=== PATIENT | female | born 1950 | race Hispanic/Latino ===

== ENCOUNTER 2020-01-07 19:41 | Emergency (ER) | payer MEDICARE ==
[~2020-01-07] VITALS: Ht 157.5 cm; Wt 88.5 kg
[2020-01-07] MEDS ORDERED: MORPHINE SULFATE INJ 4 MG/ML INJ 1ML IV STA (20:34)
[2020-01-07] MEDS ORDERED: ONDANSETRON HCL INJ 2MG/ML 2ML 2 MG/ML VIAL IV STA (20:34)
[2020-01-07] MEDS ORDERED: PANTOPRAZOLE 40 MG 10ML VIAL IV STA (20:34)
--- NOTE | 2020-01-07 20:44 | Emergency Department Note ---
History of Present Illnes History of Present Illness Chief Complaint: Abdominal Complaints History of Present Illness This is a 69 year old female PRESENTS TO THE ED WITH NAUSEA VOMITING AND DIARRHEA SINCE 11 AM, WENT TO AN URGENT CARE AND CAME HERE FOR SECOND OPINION. PATIENT STATES HER PAIN IS EPIGASTRIC AND IS WORSENING. . Historian: Patient, Family Member Arrival Mode: Car Assistant Spa Manager Required: No Onset (how long ago): hour(s) (9) Location: upper abd Quality: pain Radiation: Reports non-radiation Severity: severe Duration (how long): hour(s) (9) Timing of current episode: constant Progression: worsening Chronicity: new Context: Denies recent illness, Denies recent surgery, Denies trauma/injury Relieving factors: none Exacerbating factors: none Associated symptoms: Reports nausea/vomiting, Reports other Treatments prior to arrival: none Past Medical/Family History Physician Review I have reviewed the patient's past medical and family history. Any updates have been documented here. Past Medical History Recent Fever: Yes Clinical Suspicion of Infectio: Yes New/Unexplained Change in Ment: No Past Medical History: Hypertension, Hypothyroidism, GERD Other Medical History: ? OSTEOPROSIS CHRONIC BACK PAIN Past Surgical History: Cholecysctectomy Social History Smoking Cessation: Never Smoker Alcohol Use: None Any Illegal Drug Use: No Family History Family history of heart diseas: No Review of Systems Review of Systems Constitutional: Reports no symptoms EENTM: Reports no symptoms Cardiovascular: Reports no symptoms Respiratory: Reports no symptoms Gastrointestinal: Reports as per HPI Genitourinary: Reports no symptoms Musculoskeletal: Reports no symptoms Integumentary: Reports no symptoms Neurological: Reports no symptoms Psychological: Reports no symptoms Endocrine: Reports no symptoms Hematological/Lymphatic: Reports no symptoms Review of other systems: All other systems negative Physical Exam Related Data Allergies: Uncoded Allergies: CONTRAST (Allergy, Severe, HIVES, 01/07/20) Triage Vital Signs Vital Signs Date Time Temp Pulse Resp B/P (MAP) Pulse Ox O2 Delivery O2 Flow Rate FiO2 01/07/20 20:24 99.7 94 20 149/79 99 Room Air Vital signs reviewed: Yes Physical Exam CONSTITUTIONAL Constitutional: Present well-developed, Present well-nourished, Present distressed (mild) HENT HENT: Present normocephalic, Present atraumatic, Present oropharynx clear/moist, Present nose normal HENT L/R: Present left ext ear normal, Present right ext ear normal EYES Eyes: Reports PERRL, Reports conjunctivae normal NECK Neck: Present ROM normal PULMONARY Pulmonary: Present effort normal, Present breath sounds normal CARDIOVASCULAR Cardiovascular: Present regular rhythm, Present heart sounds normal, Present capillary refill normal, Present normal rate GASTROINTESTINAL Abdominal: Present soft, Present bowel sounds normal, Present tender (epigastric, luq, left abd) GENITOURINARY Genitourinary: Present exam deferred SKIN Skin: Present warm, Present dry MUSCULOSKELETAL Musculoskeletal: Present ROM normal NEUROLOGICAL Neurological: Present alert, Present oriented x 3, Present no gross motor or sensory deficits PSYCHOLOGICAL Psychological: Present mood/affect normal, Present judgement normal Results Laboratory Laboratory Laboratory Tests Test 01/07/20 23:22 01/07/20 20:38 White Blood Count 16.35 x10e3/uL (4.8-10.8) Red Blood Count 5.08 x10e6/uL (3.6-5.1) Hemoglobin 15.2 g/dL (12.0-16.0) Hematocrit 45.6 % (34.2-44.1) Mean Corpuscular Volume 89.8 fL (81-99) Mean Corpuscular Hemoglobin 29.9 pg (28-32) Mean Corpuscular Hemoglobin Concent 33.3 g/dL (31-35) Red Cell Distribution Width 12.9 % (11.7-14.4) Platelet Count 345 x10e3/uL (140-360) Neutrophils (%) (Auto) 75.4 % (38.7-80.0) Lymphocytes (%) (Auto) 22.2 % (18.0-39.1) Monocytes (%) (Auto) 1.4 % (4.4-11.3) Eosinophils (%) (Auto) 0.0 % (0.0-6.0) Basophils (%) (Auto) 0.2 % (0.0-1.0) Neutrophils # (Auto) 12.3 (2.1-6.9) Lymphocytes # (Auto) 3.6 (1.0-3.2) Monocytes # (Auto) 0.2 (0.2-0.8) Eosinophils # (Auto) 0.0 (0.0-0.4) Basophils # (Auto) 0.0 (0.0-0.1) Absolute Immature Granulocyte (auto 0.13 x10e3/uL (0-0.1) Sodium Level 139 mmol/L (136-145) Potassium Level 3.9 mmol/L (3.5-5.1) Chloride Level 99 mmol/L (98-107) Carbon Dioxide Level 27 mmol/L (22-29) Anion Gap 16.9 mmol/L (8-16) Blood Urea Nitrogen 12 mg/dL (7-26) Creatinine 0.82 mg/dL (0.57-1.11) Estimat Glomerular Filtration Rate > 60 ML/MIN (60-) BUN/Creatinine Ratio 15 (6-25) Glucose Level 157 mg/dL (74-118) Calcium Level 9.3 mg/dL (8.4-10.2) Total Bilirubin 0.4 mg/dL (0.2-1.2) Aspartate Amino Transf (AST/SGOT) 15 IU/L (5-34) Alanine Aminotransferase (ALT/SGPT) 15 IU/L (0-55) Alkaline Phosphatase 73 IU/L (40-150) Creatine Kinase 49 IU/L (29-168) Creatine Kinase MB 1.30 ng/mL (0-5.0) Troponin I < 0.001 ng/mL (0-0.300) Total Protein 7.3 g/dL (6.5-8.1) Albumin 4.0 g/dL (3.5-5.0) Globulin 3.3 g/dL (2.3-3.5) Albumin/Globulin Ratio 1.2 (0.8-2.0) Amylase Level 50 U/L (25-125) Lipase 7 U/L (8-78) Lab results reviewed: Yes Imaging Imaging results reviewed: Yes Impressions Procedure: [id number] CT/CT ABDOMEN/PELVIS WO Exam Date: 01/07/20 Exam Time: 2149 REPORT STATUS: Signed EXAM: CT Abdomen and Pelvis WITHOUT contrast INDICATION: ^abd pain ^[id number] ^2149 ^Y COMPARISON: None. TECHNIQUE: Abdomen and pelvis were scanned utilizing a multidetector helical scanner from the lung base to the pubic symphysis without administration of IV contrast. Absence of intravenous contrast decreases sensitivity for detection of focal lesions and vascular pathology. Coronal and sagittal reformations were obtained. Routine protocol was performed. IV CONTRAST: None ORAL CONTRAST: None COMPLICATIONS: None RADIATION DOSE: Total DLP: 688.08 mGy*cm Estimated effective dose: (DLP x 0.015 x size factor) mSv CTDIvol has been reviewed. It is below the limits set by the Radiation Protocol Committee (RPC). FINDINGS: LINES and TUBES: None. LOWER THORAX: Bibasilar linear atelectasis/running. HEPATOBILIARY: Diffuse hepatic steatosis. 2.2 cm exophytic cyst, extending from inferior right hepatic lobe (series 2, image 34). No biliary ductal dilation. GALLBLADDER: Surgically absent. SPLEEN: No splenomegaly. PANCREAS: No focal masses or ductal dilatation. ADRENALS: No adrenal nodules KIDNEYS/URETERS: No hydronephrosis. Limited for evaluation of renal parenchyma without intravenous contrast. No stones. GI TRACT: No abnormal distention, wall thickening, or evidence of bowel obstruction. There are diverticula within the colon without evidence of diverticulitis. Appendix is normal. PELVIC ORGANS/BLADDER: Unremarkable. LYMPH NODES: No lymphadenopathy. VESSELS: Unremarkable. PERITONEUM / RETROPERITONEUM: No free air or fluid. BONES: Exaggerated lordosis of the lumbar spine. Degenerative changes of lower thoracic spine. SOFT TISSUES: Unremarkable. IMPRESSION: 1. No definite evidence of acute inflammatory process in the abdomen/pelvis, considering limitations of unenhanced study. 2. Hepatic steatosis. 3. Colonic diverticulosis without evidence of diverticulitis. Signed by: Dr. Massimo Leggett MD on 01/07/2020 10:42 PM Dictated By: MASSIMO LEGGETT MD 41 Transcribed By: DAWOOD on 01/07/202241 COPY TO: SRIRAM SOL MD~ Procedures 12 Lead ECG Interpretation ECG Interpretation : ECG: ECG 1 Assistant Spa Manager: Interpreted by ED physician Date: Jan 07, 2020 Time: 20:59 Rhythm: sinus rhythm Rate: normal BPM: 86 QRS axis: normal ST segments normal: No (NON SPECIFIC CHANGES) T waves normal: Yes Other findings: no other findings Clinical Impression: non-specific ECG Assessment & Plan Medical Decision Making MDM pt with abd pain with n/v cbc, cmp, ekg, cardiac enzymes, amylase, lipase, ua, ct abd/pelvis ordered to eval for pancreatitis,myocardial infarction, colitis, diverticulitis,sbo, perforated bowel, uti, electrolyte abnormality morphine 4 mg iv ordered zofran 4 mg iv ordered protonix 40 mg iv ordered ns 1 liter iv bolus ordered dr misa davis saw pt in er, states if ct negative d/c home with cipro and follow up in office Reassessment Reassessment time: 00:24 Reassessment pt is pain free at this time Assessment & Plan Final Impression: (1) Gastritis (2) Abdominal pain Depart Disposition: HOME, SELF-CARE Last Vital Signs Date Time Temp Pulse Resp B/P (MAP) Pulse Ox O2 Delivery O2 Flow Rate FiO2 01/07/20 20:24 99.7 94 20 149/79 99 Room Air Medications in the ED Morphine Sulfate 4 mg NOW STAT IV ; Start 01/07/20 at 20:34; Stop 01/07/20 at 20:38; Status DC Ondansetron HCl 4 mg NOW STAT IV ; Start 01/07/20 at 20:34; Stop 01/07/20 at 20:39; Status DC Sodium Chloride 1,000 ml @ 100 mls/hr Q10H IV ; Start 01/07/20 at 20:45; Stop 02/06/20 at 20:44 Pantoprazole Sodium 40 mg NOW STAT IV ; Start 01/07/20 at 20:34; Stop 01/07/20 at 20:39; Status DC SRIRAM SOL MD Jan 07, 2020 20:44
[2020-01-07] MEDS ORDERED: SODIUM CHLORIDE 0.9% 1000ML 1,000 ML IV SCH (20:45)
[2020-01-07 20:56] LABS: BASOPHILS % 0.2 % (0.0-1.0); HEMATOCRIT 45.6 % (34.2-44.1); HEMOGLOBIN 15.2 g/dL (12.0-16.0); LYMPHOCYTES # (AUTO) 3.6 (1.0-3.2); LYMPHOCYTES % 22.2 % (18.0-39.1); MEAN CORPUSCULAR HEMOGLOBIN 29.9 pg (28-32); MEAN CORPUSCULAR HGB CONC 33.3 g/dL (31-35); MEAN CORPUSCULAR VOLUME 89.8 fL (81-99); MONOCYTES # (AUTO) 0.2 (0.2-0.8); MONOCYTES % 1.4 % (4.4-11.3); NEUTROPHILS # (AUTO) 12.3 (2.1-6.9); NEUTROPHILS % 75.4 % (38.7-80.0); PLATELET COUNT 345 x10e3/uL (140-360); RED BLOOD COUNT 5.08 x10e6/uL (3.6-5.1); RED CELL DISTRIBUTION WIDTH 12.9 % (11.7-14.4)
[2020-01-07] MEDS ORDERED: HYDROMORPHONE 1MG/1ML INJ IV STA (21:09)
[2020-01-07 21:17] LABS: AMYLASE 50 U/L (25-125); LIPASE 7 U/L (8-78)
[2020-01-07 21:19] LABS: ALANINE AMINOTRANSFERASE 15 IU/L (0-55); ALBUMIN/GLOBULIN RATIO 1.2 (0.8-2.0); ALKALINE PHOSPHATASE 73 IU/L (40-150); ANION GAP 16.9 mmol/L (8-16); BLOOD UREA NITROGEN 12 mg/dL (7-26); BUN/CREATININE RATIO 15 (6-25); CALCIUM 9.3 mg/dL (8.4-10.2); CARBON DIOXIDE 27 mmol/L (22-29); CHLORIDE 99 mmol/L (98-107); CREATINE KINASE 49 IU/L (29-168); CREATININE, SERUM 0.82 mg/dL (0.57-1.11); EST GLOMERULAR FILTRATION RATE > 60 ML/MIN (60-); GLUCOSE 157 mg/dL (74-118); POTASSIUM 3.9 mmol/L (3.5-5.1); SODIUM 139 mmol/L (136-145)
[2020-01-07] MEDS ORDERED: HYDROMORPHONE 1MG/1ML INJ ONE (21:19)
--- OUTSIDE RECORDS SUMMARY | 2020-01-07 21:22 | XMS REPORT | Continuity of Care Document ---
Author Author [facility] Address [address] [place] [address] Phone Unavailable Care Team Providers Care Pharmacology Teacher Name Role Phone Unavailable Unavailable Payers Payer Name Policy Type Policy Number Effective Date Expiration Date S ource Problems This patient has no known problems. Allergies, Adverse Reactions, Alerts Allergy Name Allergy Type Status Severity Reaction(s) Onset Date Inacti ve Date Treating Clinician Comments Source Iodinated Contrast- Oral and IV Dye DA Active U 2013-10-22 00:00:00 [facility] Medications This patient has no known medications. Procedures This patient has no known procedures. Results This patient has no known results.
--- NOTE | 2020-01-07 22:46 | Diagnostic Imaging Report ---
EXAM: CT Abdomen and Pelvis WITHOUT contrast INDICATION: ^abd pain ^[id number] ^2150 ^Y COMPARISON: None. TECHNIQUE: Abdomen and pelvis were scanned utilizing a multidetector helical scanner from the lung base to the pubic symphysis without administration of IV contrast. Absence of intravenous contrast decreases sensitivity for detection of focal lesions and vascular pathology. Coronal and sagittal reformations were obtained. Routine protocol was performed. IV CONTRAST: None ORAL CONTRAST: None COMPLICATIONS: None RADIATION DOSE: Total DLP: 688.08 mGy*cm Estimated effective dose: (DLP x 0.015 x size factor) mSv CTDIvol has been reviewed. It is below the limits set by the Radiation Protocol Committee (RPC). FINDINGS: LINES and TUBES: None. LOWER THORAX: Bibasilar linear atelectasis/running. HEPATOBILIARY: Diffuse hepatic steatosis. 2.2 cm exophytic cyst, extending from inferior right hepatic lobe (series 2, image 34). No biliary ductal dilation. GALLBLADDER: Surgically absent. SPLEEN: No splenomegaly. PANCREAS: No focal masses or ductal dilatation. ADRENALS: No adrenal nodules KIDNEYS/URETERS: No hydronephrosis. Limited for evaluation of renal parenchyma without intravenous contrast. No stones. GI TRACT: No abnormal distention, wall thickening, or evidence of bowel obstruction. There are diverticula within the colon without evidence of diverticulitis. Appendix is normal. PELVIC ORGANS/BLADDER: Unremarkable. LYMPH NODES: No lymphadenopathy. VESSELS: Unremarkable. PERITONEUM / RETROPERITONEUM: No free air or fluid. BONES: Exaggerated lordosis of the lumbar spine. Degenerative changes of lower thoracic spine. SOFT TISSUES: Unremarkable. IMPRESSION: 1. No definite evidence of acute inflammatory process in the abdomen/pelvis, considering limitations of unenhanced study. 2. Hepatic steatosis. 3. Colonic diverticulosis without evidence of diverticulitis. Signed by: Dr. Massimo Leggett MD on 01/07/2020 10:42 PM
[2020-01-08 00:40] LABS: CLARITY,URINE CLOUDY (CLEAR); COLOR,URINE YELLOW (YELLOW)
[2020-01-08 00:41] LABS: BILIRUBIN,URINE NEGATIVE (NEGATIVE); KETONES,URINE 1+ (NEGATIVE); LEUKOCYTE ESTERASE ,URINE NEGATIVE (NEGATIVE); NITRITE,URINE NEGATIVE (NEGATIVE); PROTEIN,URINE DIPSTICK TRACE (NEGATIVE); URINE UROBILINOGEN 0.2 mg/dL (0.2 - 1)
[2020-01-08 00:42] LABS: BACTERIA,URINE MANY /HPF; EPITHELIAL CELLS,URINE MANY /LPF; WBC,URINE (MAN) >50 /HPF (0-5)
[2020-01-08 00:52] VITALS: BP 128/70
== END 2020-01-08 01:03 | disposition home or self-care (01) ==
LOC: ER 21:19
DX: R10.13 Epigastric pain (principal); R11.2 Nausea with vomiting, unspecified; K29.70 Gastritis, unspecified, without bleeding; I10 Essential (primary) hypertension; E03.9 Hypothyroidism, unspecified; K21.9 Gastro-esophageal reflux disease without esophagitis; M54.9 Dorsalgia, unspecified; G89.29 Other chronic pain
CPT/HCPCS: 36415; 74176; 80053; 81001; 82150; 82550; 82553; 83690; 84484; 85025; 87086; 99284; C9113; J1170; J2270; J2405; J7030; 93005

== ENCOUNTER 2020-01-09 13:21 | Inpatient (IN) | payer MEDICARE ==
[~2020-01-09] VITALS: Ht 157.5 cm; Wt 88.5 kg
[2020-01-09] MEDS ORDERED: ONDANSETRON HCL INJ 2MG/ML 2ML 2 MG/ML VIAL IV STA (13:40)
[2020-01-09] MEDS ORDERED: MORPHINE SULFATE INJ 4 MG/ML INJ 1ML IV ONE (13:45)
[2020-01-09] MEDS ORDERED: METHYLPREDNISOLONE SOD SUCC 125 MG/2ML VIAL IV ONE (13:45)
[2020-01-09] MEDS ORDERED: DIPHENHYDRAMINE HCL INJ 50 MG/ML VIAL IV ONE ×2 (13:45→15:15)
[2020-01-09] MEDS ORDERED: ONDANSETRON HCL INJ 2MG/ML 2ML 2 MG/ML VIAL IV PRN (14:30)
[2020-01-09] MEDS ORDERED: MORPHINE SULFATE INJ 2 MG/ML SYR IV PRN (14:30)
[2020-01-09] MEDS ORDERED: HYDROMORPHONE 1MG/1ML INJ IV PRN ×2 (14:30→19:15)
[2020-01-09 14:59] LABS: BASOPHILS % 0.3 % (0.0-1.0); EOSINOPHILS % 0.2 % (0.0-6.0); HEMATOCRIT 43.7 % (34.2-44.1); HEMOGLOBIN 14.6 g/dL (12.0-16.0); LYMPHOCYTES # (AUTO) 3.7 (1.0-3.2); MEAN CORPUSCULAR HEMOGLOBIN 29.7 pg (28-32); MEAN CORPUSCULAR HGB CONC 33.4 g/dL (31-35); MEAN CORPUSCULAR VOLUME 88.8 fL (81-99); MONOCYTES # (AUTO) 0.6 (0.2-0.8); MONOCYTES % 4.2 % (4.4-11.3); NEUTROPHILS # (AUTO) 9.7 (2.1-6.9); NEUTROPHILS % 68.7 % (38.7-80.0); PLATELET COUNT 344 x10e3/uL (140-360); RED BLOOD COUNT 4.92 x10e6/uL (3.6-5.1); RED CELL DISTRIBUTION WIDTH 13.2 % (11.7-14.4)
[2020-01-09 15:19] LABS: ALBUMIN/GLOBULIN RATIO 1.3 (0.8-2.0); ANION GAP 15.3 mmol/L (8-16); CREATININE, SERUM 1.03 mg/dL (0.57-1.11); POTASSIUM 3.3 mmol/L (3.5-5.1)
[2020-01-09 15:24] LABS: CLARITY,URINE SL CLOUDY (CLEAR); COLOR,URINE YELLOW (YELLOW); LEUKOCYTE ESTERASE ,URINE NEGATIVE (NEGATIVE); NITRITE,URINE NEGATIVE (NEGATIVE); PROTEIN,URINE DIPSTICK NEGATIVE (NEGATIVE)
[2020-01-09 15:25] LABS: KETONES,URINE TRACE (NEGATIVE); URINE UROBILINOGEN 0.2 mg/dL (0.2 - 1)
[2020-01-09] MEDS ORDERED: MORPHINE SULFATE INJ 4 MG/ML INJ 1ML IV PRN (15:30)
[2020-01-09 15:38] LABS: BACTERIA,URINE FEW /HPF; EPITHELIAL CELLS,URINE RARE /LPF; MUCUS,URINE FEW (RARE)
[2020-01-09] MEDS ORDERED: IOPAMIDOL 370 MG/ML 200 ML INFUS..BTL INJ ONE (15:47)
[2020-01-09] MEDS ORDERED: SODIUM CHLORIDE 0.9% 50ML 50 ML ONE (15:47)
[2020-01-09] MEDS ORDERED: FENTANYL CITRATE/PF 100MCG/2 ML INJ ONE (15:56)
[2020-01-09] MEDS ORDERED: FENTANYL CITRATE/PF 100MCG/2 ML INJ IV ONE (16:00)
[2020-01-09 20:00] VITALS: BP 136/87
[2020-01-09 21:00] VITALS: BP 136/87
[2020-01-09] MEDS: DEXTROSE 5%/LACTATED RINGERS 1,000 ML IV SCH (21:30)
[2020-01-09] MEDS: PANTOPRAZOLE 40 MG 10ML VIAL IV SCH (21:30)
[2020-01-09] MEDS: PIPER-TAZ 3.375 GM 50 ML IV SCH (21:30)
[2020-01-10] VITALS (8 sets, daily range): BP systolic 129–148; BP diastolic 62–95
[2020-01-10] MEDS: PIPER-TAZ 3.375 GM 50 ML IV SCH ×4 (02:27→19:39)
[2020-01-10] MEDS ORDERED: TIZANIDINE HCL4 M1 PO (02:46)
[2020-01-10] MEDS ORDERED: PANTOPRAZOLE SO20 MG PO (02:55)
[2020-01-10] MEDS ORDERED: ONDANSETRON2 MG/1 ML PO (02:55)
[2020-01-10] MEDS ORDERED: EVISTA60 MG PO (02:55)
[2020-01-10] MEDS ORDERED: IRBESARTAN150 MG PO (02:55)
[2020-01-10] MEDS ORDERED: HYDROCHLOROTH12.5 MG PO (02:55)
[2020-01-10] MEDS ORDERED: PROTONIX40 MG/ML (02:55)
[2020-01-10] MEDS ORDERED: LEVOTHYROXINE50 MCG PO (02:55)
[2020-01-10] MEDS: DEXTROSE 5%/LACTATED RINGERS 1,000 ML IV SCH ×2 (05:51→22:53)
[2020-01-10 06:01] LABS: BASOPHILS % 0.1 % (0.0-1.0); HEMATOCRIT 40.8 % (34.2-44.1); HEMOGLOBIN 13.7 g/dL (12.0-16.0); LYMPHOCYTES # (AUTO) 4.8 (1.0-3.2); LYMPHOCYTES % 28.3 % (18.0-39.1); MEAN CORPUSCULAR HGB CONC 33.6 g/dL (31-35); MEAN CORPUSCULAR VOLUME 89.5 fL (81-99); MONOCYTES # (AUTO) 1.1 (0.2-0.8); MONOCYTES % 6.4 % (4.4-11.3); NEUTROPHILS # (AUTO) 10.8 (2.1-6.9); NEUTROPHILS % 64.5 % (38.7-80.0); PLATELET COUNT 339 x10e3/uL (140-360); RED BLOOD COUNT 4.56 x10e6/uL (3.6-5.1); RED CELL DISTRIBUTION WIDTH 13.4 % (11.7-14.4)
[2020-01-10 06:23] LABS: ALBUMIN 3.6 g/dL (3.5-5.0); ALBUMIN/GLOBULIN RATIO 1.2 (0.8-2.0); ANION GAP 12.2 mmol/L (8-16); CALCIUM 8.8 mg/dL (8.4-10.2); CREATININE, SERUM 0.94 mg/dL (0.57-1.11); POTASSIUM 4.2 mmol/L (3.5-5.1)
[2020-01-10 09:41] LABS: CHOL/HDL RATIO 3.1 (3.0-3.6)
[2020-01-10] MEDS ORDERED: MIDAZOLAM HCL 2 MG/2 ML VIAL ONE (12:24)
[2020-01-10] MEDS ORDERED: PROPOFOL IV EMULSION 10 MG/ML 20 ML VIAL ONE (12:35)
[2020-01-10] MEDS ORDERED: LIDOCAINE HCL 2% LOCAL INJ 5 ML SDV VIAL INJ ONE (12:35)
[2020-01-10] MEDS: PANTOPRAZOLE 40 MG 10ML VIAL IV SCH (19:39)
[2020-01-11] VITALS: BP_SYST 125; BP_SYST 141; BP_DIAS 77; BP_DIAS 83
[2020-01-11] MEDS: PIPER-TAZ 3.375 GM 50 ML IV SCH ×3 (01:01→13:37)
[2020-01-11] MEDS: DEXTROSE 5%/LACTATED RINGERS 1,000 ML IV SCH (01:01)
[2020-01-11 04:00] VITALS: BP 141/83
[2020-01-11 06:38] LABS: BASOPHILS # (AUTO) 0.1 (0.0-0.1); BASOPHILS % 0.5 % (0.0-1.0); EOSINOPHILS # (AUTO) 0.1 (0.0-0.4); EOSINOPHILS % 0.8 % (0.0-6.0); HEMATOCRIT 37.5 % (34.2-44.1); HEMOGLOBIN 12.9 g/dL (12.0-16.0); LYMPHOCYTES # (AUTO) 5.1 (1.0-3.2); LYMPHOCYTES % 40.5 % (18.0-39.1); MEAN CORPUSCULAR HEMOGLOBIN 31.3 pg (28-32); MEAN CORPUSCULAR HGB CONC 34.4 g/dL (31-35); MONOCYTES # (AUTO) 1.1 (0.2-0.8); MONOCYTES % 8.6 % (4.4-11.3); NEUTROPHILS # (AUTO) 6.1 (2.1-6.9); NEUTROPHILS % 49.1 % (38.7-80.0); PLATELET COUNT 269 x10e3/uL (140-360); RED BLOOD COUNT 4.12 x10e6/uL (3.6-5.1); RED CELL DISTRIBUTION WIDTH 13.7 % (11.7-14.4)
[2020-01-11 06:53] LABS: ALANINE AMINOTRANSFERASE 12 IU/L (0-55); ALBUMIN 3.2 g/dL (3.5-5.0); ALBUMIN/GLOBULIN RATIO 1.5 (0.8-2.0); ALKALINE PHOSPHATASE 54 IU/L (40-150); ANION GAP 13.1 mmol/L (8-16); BLOOD UREA NITROGEN 11 mg/dL (7-26); BUN/CREATININE RATIO 12 (6-25); CALCIUM 8.1 mg/dL (8.4-10.2); CARBON DIOXIDE 28 mmol/L (22-29); CHLORIDE 105 mmol/L (98-107); EST GLOMERULAR FILTRATION RATE > 60 ML/MIN (60-); GLUCOSE 118 mg/dL (74-118); POTASSIUM 3.1 mmol/L (3.5-5.1); SODIUM 143 mmol/L (136-145)
[2020-01-11 08:08] VITALS: BP 170/80
[2020-01-11 08:35] VITALS: BP 170/80
[2020-01-11] MEDS ORDERED: REGADENOSON 0.4 MG/5 ML SYR IV ONE (10:12)
[2020-01-11 16:00] VITALS: BP 143/68
[2020-02-14] MEDS ORDERED: OLMESARTAN-HCT1 EAC1 PO (15:54)
== END 2020-01-11 18:18 | disposition home or self-care (01) | DRG 392 ==
LOC: ER 13:52 → ERHOLD 14:26 → MED/SURG3 19:07
PROVIDERS: ADMIT Surgery; ATTEND Surgery
PROC: 0DB58ZX Excision of Esophagus, Via Natural or Artificial Opening Endoscopic, Diagnostic (ICD-10-PCS; 2020-01-10)
PROC: 0DB78ZX Excision of Stomach, Pylorus, Via Natural or Artificial Opening Endoscopic, Diagnostic (ICD-10-PCS; principal; 2020-01-10 08:04)
DX: K29.70 Gastritis, unspecified, without bleeding (principal); A04.9 Bacterial intestinal infection, unspecified; E66.9 Obesity, unspecified; Z68.35 Body mass index [BMI] 35.0-35.9, adult; I10 Essential (primary) hypertension; M19.90 Unspecified osteoarthritis, unspecified site; G89.29 Other chronic pain; M54.9 Dorsalgia, unspecified; K31.7 Polyp of stomach and duodenum; K44.9 Diaphragmatic hernia without obstruction or gangrene; K22.9 Disease of esophagus, unspecified; Z11.59 Encounter for screening for other viral diseases
CPT/HCPCS: 36415; 43239; 74177; 78452; 80053; 80061; 81001; 82550; 82553; 83690; 84484; 85025; 88305; 88312; 93005; 93017; 93306; 96361; 99284; A9502; J1200; J2001; J2250; J2270; J2405; J2543; J2930; J3010; Q9967; U0002

== ENCOUNTER → 2020-02-20 | Day surgery (SDC) | payer MEDICARE ==
[~2020-02-20] MED LIST: EVISTA60 MG PO; HYDROCHLOROTH12.5 MG PO; IRBESARTAN150 MG PO; LEVOTHYROXINE50 MCG PO; MIDAZOLAM HCL 2 MG/2 ML VIAL ONE; OLMESARTAN-HCT1 EAC1 PO; ONDANSETRON2 MG/1 ML PO; PANTOPRAZOLE SO20 MG PO; PROPOFOL IV EMULSION 10 MG/ML 20 ML VIAL ONE; PROTONIX40 MG/ML; TIZANIDINE HCL4 M1 PO
[2020-02-20 09:36] VITALS: BP 115/58
== END | disposition home or self-care (01) ==
LOC: OR 06:20
PROVIDERS: ATTEND Surgery
DX: C16.0 Malignant neoplasm of cardia (principal); D13.1 Benign neoplasm of stomach; I10 Essential (primary) hypertension; Z91.041 Radiographic dye allergy status; Z01.812 Encounter for preprocedural laboratory examination; Z20.828 Contact with and (suspected) exposure to other viral communicable diseases
CPT/HCPCS: 43251; 88305; J2250; J2704; U0002; 43239

== ENCOUNTER 2020-04-23 06:31 | Inpatient (IN) | payer MEDICARE ==
[2020-04-19 15:42] LABS: BASOPHILS # (AUTO) 0.1 (0.0-0.1); BASOPHILS % 0.6 % (0.0-1.0); EOSINOPHILS # (AUTO) 0.1 (0.0-0.4); HEMATOCRIT 42.2 % (34.2-44.1); HEMOGLOBIN 13.9 g/dL (12.0-16.0); LYMPHOCYTES # (AUTO) 3.9 (1.0-3.2); LYMPHOCYTES % 38.2 % (18.0-39.1); MEAN CORPUSCULAR HEMOGLOBIN 29.8 pg (28-32); MEAN CORPUSCULAR HGB CONC 32.9 g/dL (31-35); MEAN CORPUSCULAR VOLUME 90.4 fL (81-99); MONOCYTES % 9.3 % (4.4-11.3); NEUTROPHILS # (AUTO) 5.2 (2.1-6.9); NEUTROPHILS % 50.5 % (38.7-80.0); PLATELET COUNT 314 x10e3/uL (140-360); RED BLOOD COUNT 4.67 x10e6/uL (3.6-5.1); RED CELL DISTRIBUTION WIDTH 13.6 % (11.7-14.4)
[2020-04-19 16:02] LABS: ALANINE AMINOTRANSFERASE 12 IU/L (0-55); ALBUMIN 3.8 g/dL (3.5-5.0); ALBUMIN/GLOBULIN RATIO 1.2 (0.8-2.0); ALKALINE PHOSPHATASE 65 IU/L (40-150); ANION GAP 14.8 mmol/L (8-16); BLOOD UREA NITROGEN 14 mg/dL (7-26); BUN/CREATININE RATIO 16 (6-25); CALCIUM 8.8 mg/dL (8.4-10.2); CARBON DIOXIDE 28 mmol/L (22-29); CHLORIDE 103 mmol/L (98-107); CREATININE, SERUM 0.85 mg/dL (0.57-1.11); EST GLOMERULAR FILTRATION RATE > 60 ML/MIN (60-); GLUCOSE 114 mg/dL (74-118); POTASSIUM 3.8 mmol/L (3.5-5.1); SODIUM 142 mmol/L (136-145)
[~2020-04-23] VITALS: Ht 157.5 cm; Wt 88.5 kg
[~2020-04-23 06:31] MED LIST changes: +AVALIDE 150-121 EACH PO; +BENTYL10 MG/1 ML PO; -MIDAZOLAM HCL 2 MG/2 ML VIAL ONE; -PROPOFOL IV EMULSION 10 MG/ML 20 ML VIAL ONE
[2020-04-23] MEDS ORDERED: MINERAL OIL STERILE 10ML VIAL ONE (09:06)
[2020-04-23] MEDS ORDERED: BUPIVACAINE 0.25% 30ML SDV ONE (09:49)
[2020-04-23] MEDS ORDERED: BUPIVACAINE LIPOSOME/PF 266 MG/20 ML IJ ONE (09:49)
[2020-04-23] MEDS ORDERED: MIDAZOLAM HCL 2 MG/2 ML VIAL ONE (12:38)
[2020-04-23] MEDS ORDERED: FENTANYL CITRATE/PF 100MCG/2 ML INJ ONE (12:38)
[2020-04-23] MEDS ORDERED: ONDANSETRON HCL INJ 2MG/ML 2ML 2 MG/ML VIAL ONE (12:58)
[2020-04-23] MEDS ORDERED: NEOSTIGMINE 1 MG/ML 10ML VIAL ONE (12:58)
[2020-04-23] MEDS ORDERED: LIDOCAINE HCL 2% LOCAL INJ 5 ML SDV VIAL INJ ONE (12:58)
[2020-04-23] MEDS ORDERED: CEFOXITIN SOD 1 GM VIAL ONE (12:58)
[2020-04-23] MEDS ORDERED: DEXAMETHASONE SOD PHOS INJ 4 MG/ML VIAL ONE (12:58)
[2020-04-23] MEDS ORDERED: ROCURONIUM BROMIDE 10 MG/ML 5ML VIAL IV ONE (12:58)
[2020-04-23] MEDS ORDERED: ATROPINE SULFATE 1 MG/ML VIAL ONE (12:58)
[2020-04-23] MEDS ORDERED: PHENYLEPHRINE HCL 1% 10 MG/ML VIAL ONE (12:58)
[2020-04-23] MEDS ORDERED: KETOROLAC TROMETHAMINE 30 MG/ML VIAL ONE (12:58)
[2020-04-23] MEDS ORDERED: SEVOFLURANE INHAL SOLN 250 ML PEN BTL ONE (12:58)
[2020-04-23] MEDS ORDERED: PROPOFOL IV EMULSION 10 MG/ML 20 ML VIAL ONE (12:58)
[2020-04-23] MEDS ORDERED: NALOXONE HCL INJ 0.4 MG/ML AMP IV PRN (13:00)
[2020-04-23] MEDS: HYDROMORPHONE 0.2MG/ML-SOD CHL 30ML PCA SYRINGE IV PRN (13:25)
[2020-04-23 15:30] VITALS: BP 146/90
[2020-04-23] MEDS: SODIUM CHLORIDE 0.9% 250ML IRRIG IR SCH ×3 (15:47→21:26)
[2020-04-23] MEDS ORDERED: ACETAMINOPHEN 1000 MG/100 ML IV PRN (16:00)
[2020-04-23] MEDS: DEXTROSE 5%/LACTATED RINGERS 1,000 ML IV SCH (16:07)
[2020-04-23] MEDS: PANTOPRAZOLE 40 MG 10ML VIAL IV SCH (16:07)
[2020-04-23] MEDS: CEFTRIAXONE SOD 1 GM 50 ML IV SCH (17:28)
[2020-04-23 20:00] VITALS: BP 115/75
[2020-04-23 21:00] VITALS: BP 115/75
[2020-04-24] VITALS (8 sets, daily range): BP systolic 115–132; BP diastolic 63–91
[2020-04-24] MEDS: SODIUM CHLORIDE 0.9% 250ML IRRIG IR SCH ×6 (01:12→22:12)
[2020-04-24] MEDS: DEXTROSE 5%/LACTATED RINGERS 1,000 ML IV SCH ×4 (02:08→22:12)
[2020-04-24] MEDS: HYDROMORPHONE 0.2MG/ML-SOD CHL 30ML PCA SYRINGE IV PRN (04:35)
[2020-04-24 09:46] LABS: BASOPHILS # (AUTO) 0.1 (0.0-0.1); BASOPHILS % 0.4 % (0.0-1.0); HEMATOCRIT 38.8 % (34.2-44.1); HEMOGLOBIN 12.7 g/dL (12.0-16.0); LYMPHOCYTES # (AUTO) 3.7 (1.0-3.2); LYMPHOCYTES % 10.7 % (18.0-39.1); MEAN CORPUSCULAR HEMOGLOBIN 29.7 pg (28-32); MEAN CORPUSCULAR HGB CONC 32.7 g/dL (31-35); MEAN CORPUSCULAR VOLUME 90.7 fL (81-99); MONOCYTES % 8.6 % (4.4-11.3); NEUTROPHILS # (AUTO) 27.6 (2.1-6.9); NEUTROPHILS % 79.3 % (38.7-80.0); PLATELET COUNT 271 x10e3/uL (140-360); RED BLOOD COUNT 4.28 x10e6/uL (3.6-5.1); RED CELL DISTRIBUTION WIDTH 13.8 % (11.7-14.4)
[2020-04-24 10:08] LABS: ANION GAP 15.2 mmol/L (8-16); CALCIUM 7.9 mg/dL (8.4-10.2); CREATININE, SERUM 1.75 mg/dL (0.57-1.11); POTASSIUM 4.2 mmol/L (3.5-5.1)
[2020-04-24 11:17] LABS: LYMPHOCYTES % (MANUAL) 6 % (19-48); MONOCYTES % (MANUAL) 7 % (3.4-9.0); NEUTROPHILS % (MANUAL) 84 % (40-74); PLATELET ESTIMATE ADEQUATE; PLATELET MORPHOLOGY COMMENT NORMAL; RBC MORPHOLOGY COMMENT NORMAL
[2020-04-24] MEDS: PANTOPRAZOLE 40 MG 10ML VIAL IV SCH (16:38)
[2020-04-24] MEDS: CEFTRIAXONE SOD 1 GM 50 ML IV SCH (16:38)
[2020-04-25] VITALS (7 sets, daily range): BP systolic 115–137; BP diastolic 59–71
[2020-04-25] MEDS: HYDROMORPHONE 0.2MG/ML-SOD CHL 30ML PCA SYRINGE IV PRN ×2 (02:15→23:55)
[2020-04-25] MEDS: SODIUM CHLORIDE 0.9% 250ML IRRIG IR SCH ×6 (02:18→21:29)
[2020-04-25] MEDS: DEXTROSE 5%/LACTATED RINGERS 1,000 ML IV SCH ×3 (07:10→16:17)
[2020-04-25 10:08] LABS: BASOPHILS % 0.1 % (0.0-1.0); EOSINOPHILS # (AUTO) 0.1 (0.0-0.4); EOSINOPHILS % 0.3 % (0.0-6.0); HEMATOCRIT 30.1 % (34.2-44.1); HEMOGLOBIN 9.9 g/dL (12.0-16.0); LYMPHOCYTES # (AUTO) 3.6 (1.0-3.2); LYMPHOCYTES % 9.6 % (18.0-39.1); MEAN CORPUSCULAR HEMOGLOBIN 30.4 pg (28-32); MEAN CORPUSCULAR HGB CONC 32.9 g/dL (31-35); MEAN CORPUSCULAR VOLUME 92.3 fL (81-99); MONOCYTES # (AUTO) 2.9 (0.2-0.8); MONOCYTES % 7.8 % (4.4-11.3); NEUTROPHILS # (AUTO) 30.1 (2.1-6.9); NEUTROPHILS % 80.1 % (38.7-80.0); PLATELET COUNT 235 x10e3/uL (140-360); RED BLOOD COUNT 3.26 x10e6/uL (3.6-5.1); RED CELL DISTRIBUTION WIDTH 14.2 % (11.7-14.4)
[2020-04-25 10:28] LABS: CREATININE, SERUM 1.07 mg/dL (0.57-1.11)
[2020-04-25] MEDS: PANTOPRAZOLE 40 MG 10ML VIAL IV SCH (16:17)
[2020-04-25] MEDS: CEFTRIAXONE SOD 1 GM 50 ML IV SCH (16:17)
[2020-04-26] VITALS (8 sets, daily range): BP systolic 125–144; BP diastolic 51–77
[2020-04-26] MEDS: SODIUM CHLORIDE 0.9% 250ML IRRIG IR SCH ×6 (00:48→22:13)
[2020-04-26] MEDS: DEXTROSE 5%/LACTATED RINGERS 1,000 ML IV SCH ×3 (00:48→08:51)
[2020-04-26 05:28] LABS: BASOPHILS # (AUTO) 0.1 (0.0-0.1); BASOPHILS % 0.2 % (0.0-1.0); EOSINOPHILS % 0.1 % (0.0-6.0); HEMATOCRIT 27.1 % (34.2-44.1); HEMOGLOBIN 8.7 g/dL (12.0-16.0); LYMPHOCYTES # (AUTO) 3.5 (1.0-3.2); LYMPHOCYTES % 12.8 % (18.0-39.1); MEAN CORPUSCULAR HEMOGLOBIN 30.1 pg (28-32); MEAN CORPUSCULAR HGB CONC 32.1 g/dL (31-35); MEAN CORPUSCULAR VOLUME 93.8 fL (81-99); MONOCYTES # (AUTO) 2.3 (0.2-0.8); MONOCYTES % 8.4 % (4.4-11.3); NEUTROPHILS # (AUTO) 20.9 (2.1-6.9); NEUTROPHILS % 77.3 % (38.7-80.0); PLATELET COUNT 239 x10e3/uL (140-360); RED BLOOD COUNT 2.89 x10e6/uL (3.6-5.1); RED CELL DISTRIBUTION WIDTH 14.2 % (11.7-14.4)
[2020-04-26 05:44] LABS: ANION GAP 8.9 mmol/L (8-16); BLOOD UREA NITROGEN 20 mg/dL (7-26); BUN/CREATININE RATIO 26 (6-25); CALCIUM 7.7 mg/dL (8.4-10.2); CARBON DIOXIDE 31 mmol/L (22-29); CHLORIDE 108 mmol/L (98-107); CREATININE, SERUM 0.76 mg/dL (0.57-1.11); EST GLOMERULAR FILTRATION RATE > 60 ML/MIN (60-); GLUCOSE 133 mg/dL (74-118); POTASSIUM 3.9 mmol/L (3.5-5.1); SODIUM 144 mmol/L (136-145)
[2020-04-26 08:17] LABS: LYMPHOCYTES % (MANUAL) 8 % (19-48); MONOCYTES % (MANUAL) 6 % (3.4-9.0); NEUTROPHILS % (MANUAL) 86 % (40-74); PLATELET ESTIMATE ADEQUATE; PLATELET MORPHOLOGY COMMENT NORMAL; RBC MORPHOLOGY COMMENT NORMAL
[2020-04-26] MEDS ORDERED: BISACODYL 10 MG SUPP PR ONE (12:45)
[2020-04-26] MEDS: PANTOPRAZOLE 40 MG 10ML VIAL IV SCH (16:00)
[2020-04-26] MEDS: CEFTRIAXONE SOD 1 GM 50 ML IV SCH (17:00)
[2020-04-27] VITALS (8 sets, daily range): BP systolic 132–153; BP diastolic 70–99
[2020-04-27] MEDS: SODIUM CHLORIDE 0.9% 250ML IRRIG IR SCH ×3 (00:32→09:00)
[2020-04-27] MEDS: DEXTROSE 5%/LACTATED RINGERS 1,000 ML IV SCH ×5 (00:32→23:23)
[2020-04-27] MEDS: HYDROMORPHONE 0.2MG/ML-SOD CHL 30ML PCA SYRINGE IV PRN (02:40)
[2020-04-27] MEDS ORDERED: BISACODYL 10 MG SUPP PR ONE ×2 (09:00→09:45)
[2020-04-27 09:48] LABS: BASOPHILS % 0.2 % (0.0-1.0); EOSINOPHILS # (AUTO) 0.1 (0.0-0.4); EOSINOPHILS % 0.7 % (0.0-6.0); HEMATOCRIT 27.9 % (34.2-44.1); HEMOGLOBIN 9.1 g/dL (12.0-16.0); LYMPHOCYTES # (AUTO) 3.2 (1.0-3.2); LYMPHOCYTES % 16.6 % (18.0-39.1); MEAN CORPUSCULAR HEMOGLOBIN 30.7 pg (28-32); MEAN CORPUSCULAR HGB CONC 32.6 g/dL (31-35); MEAN CORPUSCULAR VOLUME 94.3 fL (81-99); MONOCYTES % 10.3 % (4.4-11.3); NEUTROPHILS # (AUTO) 13.7 (2.1-6.9); NEUTROPHILS % 71.4 % (38.7-80.0); PLATELET COUNT 254 x10e3/uL (140-360); RED BLOOD COUNT 2.96 x10e6/uL (3.6-5.1)
[2020-04-27 10:26] LABS: ALANINE AMINOTRANSFERASE 157 IU/L (0-55); ALBUMIN 2.2 g/dL (3.5-5.0); ALBUMIN/GLOBULIN RATIO 0.7 (0.8-2.0); ALKALINE PHOSPHATASE 60 IU/L (40-150); ANION GAP 10.5 mmol/L (8-16); BLOOD UREA NITROGEN 16 mg/dL (7-26); BUN/CREATININE RATIO 24 (6-25); CALCIUM 7.8 mg/dL (8.4-10.2); CARBON DIOXIDE 27 mmol/L (22-29); CHLORIDE 110 mmol/L (98-107); CREATININE, SERUM 0.68 mg/dL (0.57-1.11); EST GLOMERULAR FILTRATION RATE > 60 ML/MIN (60-); GLUCOSE 124 mg/dL (74-118); POTASSIUM 3.5 mmol/L (3.5-5.1); SODIUM 144 mmol/L (136-145)
[2020-04-27] MEDS: CEFTRIAXONE SOD 1 GM 50 ML IV SCH (17:43)
[2020-04-27] MEDS: PANTOPRAZOLE 40 MG 10ML VIAL IV SCH (17:43)
[2020-04-28] VITALS (8 sets, daily range): BP systolic 126–150; BP diastolic 64–83
[2020-04-28] MEDS: DEXTROSE 5%/LACTATED RINGERS 1,000 ML IV SCH (09:29)
[2020-04-28] MEDS: PANTOPRAZOLE 40 MG 10ML VIAL IV SCH (16:36)
[2020-04-28] MEDS: CEFTRIAXONE SOD 1 GM 50 ML IV SCH (16:36)
[2020-04-28] MEDS: HYDROMORPHONE 0.2MG/ML-SOD CHL 30ML PCA SYRINGE IV PRN (17:50)
[2020-04-29] VITALS (8 sets, daily range): BP systolic 133–150; BP diastolic 70–79
[2020-04-29] MEDS: DEXTROSE 5%/LACTATED RINGERS 1,000 ML IV SCH ×2 (04:54→21:04)
[2020-04-29 10:48] LABS: BASOPHILS % 0.2 % (0.0-1.0); EOSINOPHILS # (AUTO) 0.4 (0.0-0.4); EOSINOPHILS % 2.2 % (0.0-6.0); HEMATOCRIT 26.9 % (34.2-44.1); HEMOGLOBIN 8.9 g/dL (12.0-16.0); LYMPHOCYTES # (AUTO) 3.3 (1.0-3.2); LYMPHOCYTES % 19.2 % (18.0-39.1); MEAN CORPUSCULAR HGB CONC 33.1 g/dL (31-35); MEAN CORPUSCULAR VOLUME 90.6 fL (81-99); MONOCYTES # (AUTO) 2.2 (0.2-0.8); MONOCYTES % 12.6 % (4.4-11.3); NEUTROPHILS # (AUTO) 10.9 (2.1-6.9); NEUTROPHILS % 63.8 % (38.7-80.0); PLATELET COUNT 383 x10e3/uL (140-360); RED BLOOD COUNT 2.97 x10e6/uL (3.6-5.1); RED CELL DISTRIBUTION WIDTH 13.7 % (11.7-14.4)
[2020-04-29 11:03] LABS: ALANINE AMINOTRANSFERASE 87 IU/L (0-55); ALBUMIN 2.2 g/dL (3.5-5.0); ALBUMIN/GLOBULIN RATIO 0.7 (0.8-2.0); ALKALINE PHOSPHATASE 73 IU/L (40-150); ANION GAP 10.1 mmol/L (8-16); BLOOD UREA NITROGEN 8 mg/dL (7-26); BUN/CREATININE RATIO 13 (6-25); CALCIUM 7.6 mg/dL (8.4-10.2); CARBON DIOXIDE 28 mmol/L (22-29); CHLORIDE 105 mmol/L (98-107); CREATININE, SERUM 0.62 mg/dL (0.57-1.11); EST GLOMERULAR FILTRATION RATE > 60 ML/MIN (60-); GLUCOSE 127 mg/dL (74-118); POTASSIUM 3.1 mmol/L (3.5-5.1); SODIUM 140 mmol/L (136-145)
[2020-04-29] MEDS ORDERED: HYDROCODONE/APAP 7.5MG-325MG 1 EA TAB PO PRN (11:30)
[2020-04-29] MEDS ORDERED: HYDROMORPHONE 1MG/1ML INJ IV PRN (11:30)
[2020-04-29] MEDS: CEFTRIAXONE SOD 1 GM 50 ML IV SCH (17:20)
[2020-04-29] MEDS: PANTOPRAZOLE 40 MG 10ML VIAL IV SCH (17:20)
[2020-04-29] MEDS ORDERED: ACETAMINOPHEN/CODEINE 300MG - 30MG TAB PO PRN (19:15)
[2020-04-29] MEDS: ONDANSETRON HCL INJ 2MG/ML 2ML 2 MG/ML VIAL IV PRN (21:02)
[2020-04-29] MEDS: HYDROMORPHONE 1MG/1ML INJ IV PRN (21:02)
[2020-04-30] VITALS (9 sets, daily range): BP systolic 123–150; BP diastolic 54–74
[2020-04-30] MEDS ORDERED: POTASSIUM CHLORIDE 20MEQ/100ML 200 ML IV ONE (09:00)
[2020-04-30] MEDS ORDERED: FUROSEMIDE INJ 10 MG/ML 2 ML VIAL IV ONE (09:30)
[2020-04-30] MEDS: PANTOPRAZOLE 40 MG 10ML VIAL IV SCH (16:00)
[2020-04-30] MEDS: ONDANSETRON HCL INJ 2MG/ML 2ML 2 MG/ML VIAL IV PRN (22:15)
[2020-05-01] VITALS (7 sets, daily range): BP systolic 118–133; BP diastolic 61–93
[2020-05-01] MEDS: HYDROMORPHONE 1MG/1ML INJ IV PRN ×3 (02:13→21:50)
[2020-05-01] MEDS: ONDANSETRON HCL INJ 2MG/ML 2ML 2 MG/ML VIAL IV PRN ×4 (02:13→21:30)
[2020-05-01 04:31] LABS: BASOPHILS # (AUTO) 0.1 (0.0-0.1); BASOPHILS % 0.4 % (0.0-1.0); EOSINOPHILS # (AUTO) 0.4 (0.0-0.4); EOSINOPHILS % 2.7 % (0.0-6.0); HEMOGLOBIN 8.4 g/dL (12.0-16.0); LYMPHOCYTES # (AUTO) 3.5 (1.0-3.2); LYMPHOCYTES % 21.4 % (18.0-39.1); MEAN CORPUSCULAR HEMOGLOBIN 29.3 pg (28-32); MEAN CORPUSCULAR HGB CONC 32.3 g/dL (31-35); MEAN CORPUSCULAR VOLUME 90.6 fL (81-99); MONOCYTES % 12.1 % (4.4-11.3); NEUTROPHILS # (AUTO) 9.8 (2.1-6.9); PLATELET COUNT 478 x10e3/uL (140-360); RED BLOOD COUNT 2.87 x10e6/uL (3.6-5.1); RED CELL DISTRIBUTION WIDTH 13.8 % (11.7-14.4)
[2020-05-01 04:51] LABS: ALANINE AMINOTRANSFERASE 48 IU/L (0-55); ALBUMIN 2.2 g/dL (3.5-5.0); ALBUMIN/GLOBULIN RATIO 0.8 (0.8-2.0); ALKALINE PHOSPHATASE 64 IU/L (40-150); ANION GAP 9.9 mmol/L (8-16); BLOOD UREA NITROGEN 8 mg/dL (7-26); BUN/CREATININE RATIO 12 (6-25); CALCIUM 7.4 mg/dL (8.4-10.2); CARBON DIOXIDE 29 mmol/L (22-29); CHLORIDE 104 mmol/L (98-107); CREATININE, SERUM 0.69 mg/dL (0.57-1.11); EST GLOMERULAR FILTRATION RATE > 60 ML/MIN (60-); GLUCOSE 108 mg/dL (74-118); SODIUM 140 mmol/L (136-145)
[2020-05-01 04:55] LABS: POTASSIUM 2.9 mmol/L (3.5-5.1)
[2020-05-01] MEDS ORDERED: POTASSIUM CHLORIDE 20MEQ/15ML UDC PO ONE ×2 (05:30→09:30)
[2020-05-01] MEDS ORDERED: KCL 20 MEQ PACKET/ ORAL SOLN PO ONE ×2 (06:55→09:30)
[2020-05-01] MEDS: POTASSIUM CHLORIDE 20 MEQ in DEXTROSE 5%/LACTATED RINGERS 1,000 ML IV SCH ×2 (07:11→20:13)
[2020-05-01] MEDS: PANTOPRAZOLE 40 MG 10ML VIAL IV SCH (17:50)
[2020-05-02 00:25] VITALS: BP 96/53
[2020-05-02 05:23] VITALS: BP 148/87
[2020-05-02] MEDS: HYDROMORPHONE 1MG/1ML INJ IV PRN ×2 (05:50→14:17)
[2020-05-02 06:06] LABS: BASOPHILS # (AUTO) 0.1 (0.0-0.1); BASOPHILS % 0.6 % (0.0-1.0); EOSINOPHILS # (AUTO) 0.4 (0.0-0.4); EOSINOPHILS % 2.4 % (0.0-6.0); HEMOGLOBIN 9.1 g/dL (12.0-16.0); LYMPHOCYTES % 24.2 % (18.0-39.1); MEAN CORPUSCULAR HEMOGLOBIN 29.5 pg (28-32); MEAN CORPUSCULAR HGB CONC 32.5 g/dL (31-35); MEAN CORPUSCULAR VOLUME 90.9 fL (81-99); MONOCYTES # (AUTO) 1.9 (0.2-0.8); MONOCYTES % 11.8 % (4.4-11.3); NEUTROPHILS # (AUTO) 9.2 (2.1-6.9); NEUTROPHILS % 56.5 % (38.7-80.0); PLATELET COUNT 324 x10e3/uL (140-360); RED BLOOD COUNT 3.08 x10e6/uL (3.6-5.1); RED CELL DISTRIBUTION WIDTH 14.4 % (11.7-14.4)
[2020-05-02] MEDS: POTASSIUM CHLORIDE 20 MEQ in DEXTROSE 5%/LACTATED RINGERS 1,000 ML IV SCH (06:46)
[2020-05-02 06:59] LABS: ALANINE AMINOTRANSFERASE 37 IU/L (0-55); ALBUMIN 2.2 g/dL (3.5-5.0); ALBUMIN/GLOBULIN RATIO 0.8 (0.8-2.0); ALKALINE PHOSPHATASE 64 IU/L (40-150); ANION GAP 11.5 mmol/L (8-16); BLOOD UREA NITROGEN 7 mg/dL (7-26); BUN/CREATININE RATIO 10 (6-25); CALCIUM 7.5 mg/dL (8.4-10.2); CARBON DIOXIDE 25 mmol/L (22-29); CHLORIDE 107 mmol/L (98-107); CREATININE, SERUM 0.67 mg/dL (0.57-1.11); EST GLOMERULAR FILTRATION RATE > 60 ML/MIN (60-); GLUCOSE 113 mg/dL (74-118); POTASSIUM 3.5 mmol/L (3.5-5.1); SODIUM 140 mmol/L (136-145)
[2020-05-02 08:00] VITALS: BP 143/76
[2020-05-02 08:06] VITALS: BP 143/76
[2020-05-02] MEDS ORDERED: FUROSEMIDE INJ 10 MG/ML 2 ML VIAL IV ONE (09:00)
[2020-05-02 11:43] VITALS: BP 143/60
[2020-05-02] MEDS: ONDANSETRON HCL INJ 2MG/ML 2ML 2 MG/ML VIAL IV PRN (14:16)
[2020-05-02] MEDS: PANTOPRAZOLE 40 MG 10ML VIAL IV SCH (15:57)
[2020-05-02 16:00] VITALS: BP 134/81
== END 2020-05-02 19:39 | disposition home or self-care (01) | DRG 327 ==
LOC: OR 06:31 → PACU V 13:00 → MED/SURG 15:04
PROVIDERS: ADMIT Surgery; ATTEND Surgery
PROC: 02HV33Z Insertion of Infusion Device into Superior Vena Cava, Percutaneous Approach (ICD-10-PCS; 2020-04-19)
PROC: 07TP0ZZ Resection of Spleen, Open Approach (ICD-10-PCS; 2020-04-23)
PROC: 0DQ70ZZ Repair Stomach, Pylorus, Open Approach (ICD-10-PCS; 2020-04-23)
PROC: 0DT60ZZ Resection of Stomach, Open Approach (ICD-10-PCS; principal; 2020-04-23 07:30)
DX: C16.0 Malignant neoplasm of cardia (principal); N17.9 Acute kidney failure, unspecified; D62 Acute posthemorrhagic anemia; E66.9 Obesity, unspecified; K21.9 Gastro-esophageal reflux disease without esophagitis; E03.9 Hypothyroidism, unspecified; M19.90 Unspecified osteoarthritis, unspecified site; Z68.35 Body mass index [BMI] 35.0-35.9, adult; I10 Essential (primary) hypertension; E87.6 Hypokalemia; D53.9 Nutritional anemia, unspecified; Z20.822 Contact with and (suspected) exposure to COVID-19
CPT/HCPCS: 36415; 71045; 71046; 80048; 80053; 85025; 86850; 86900; 88172; 88173; 88305; 88307; 88331; 93005; 97139; 99251; J0461; J0694; J0696; J1100; J1170; J1885; J1940; J2001; J2250; J2370; J2405; J2710; J3010; J3480; U0002

== ENCOUNTER → 2020-05-03 | Outpatient (CLI) | payer OTHER ==
[~2020-05-03] MED LIST changes: +COVID-19 VACC, MRNA(MODERNA)/PF 100 MCG/0.5 ML VIAL IM ONE
== END ==
LOC: VACCPMC 13:49
DX: Z23 Encounter for immunization (principal); Z20.822 Contact with and (suspected) exposure to COVID-19
CPT/HCPCS: 91301

== ENCOUNTER → 2020-05-27 | Outpatient (CLI) | payer OTHER ==
[~2020-05-27] MED LIST changes: +PANTOPRAZOLE SO40 MG PO; +REGLAN10 MG PO; +VANCOCIN HCL250 MG PO
== END | disposition home or self-care (01) ==
LOC: VACCPMC 09:25
DX: Z23 Encounter for immunization (principal); Z20.822 Contact with and (suspected) exposure to COVID-19
CPT/HCPCS: 91301

== ENCOUNTER → 2020-05-30 | Outpatient (CLI) | payer MEDICARE ==
[~2020-05-30] MED LIST changes: -COVID-19 VACC, MRNA(MODERNA)/PF 100 MCG/0.5 ML VIAL IM ONE; -PANTOPRAZOLE SO40 MG PO; -REGLAN10 MG PO; -VANCOCIN HCL250 MG PO
== END ==
LOC: DX 09:50
PROVIDERS: ATTEND Surgery
DX: R11.10 Vomiting, unspecified (principal)
CPT/HCPCS: 71046; 74246; U0002

== ENCOUNTER 2020-06-04 14:12 | Inpatient (IN) | payer MEDICARE ==
[~2020-06-04] VITALS: Ht 157.5 cm; Wt 88.5 kg
[2020-06-04 16:01] VITALS: BP 104/63
[2020-06-04 16:22] LABS: BASOPHILS # (AUTO) 0.1 (0.0-0.1); BASOPHILS % 0.4 % (0.0-1.0); EOSINOPHILS # (AUTO) 0.1 (0.0-0.4); EOSINOPHILS % 0.8 % (0.0-6.0); HEMATOCRIT 40.3 % (34.2-44.1); LYMPHOCYTES # (AUTO) 3.6 (1.0-3.2); LYMPHOCYTES % 28.3 % (18.0-39.1); MEAN CORPUSCULAR HEMOGLOBIN 28.3 pg (28-32); MEAN CORPUSCULAR HGB CONC 32.3 g/dL (31-35); MEAN CORPUSCULAR VOLUME 87.8 fL (81-99); MONOCYTES # (AUTO) 1.3 (0.2-0.8); NEUTROPHILS # (AUTO) 7.6 (2.1-6.9); NEUTROPHILS % 59.5 % (38.7-80.0); PLATELET COUNT 499 x10e3/uL (140-360); RED BLOOD COUNT 4.59 x10e6/uL (3.6-5.1); RED CELL DISTRIBUTION WIDTH 13.9 % (11.7-14.4)
[2020-06-04 16:36] VITALS: BP 104/63
[2020-06-04 16:44] LABS: ALANINE AMINOTRANSFERASE 13 IU/L (0-55); ALBUMIN 3.3 g/dL (3.5-5.0); ALKALINE PHOSPHATASE 67 IU/L (40-150); ANION GAP 12.6 mmol/L (8-16); BLOOD UREA NITROGEN 16 mg/dL (7-26); BUN/CREATININE RATIO 20 (6-25); CALCIUM 8.4 mg/dL (8.4-10.2); CARBON DIOXIDE 30 mmol/L (22-29); CHLORIDE 94 mmol/L (98-107); CREATININE, SERUM 0.79 mg/dL (0.57-1.11); EST GLOMERULAR FILTRATION RATE > 60 ML/MIN (60-); GLUCOSE 106 mg/dL (74-118); POTASSIUM 3.6 mmol/L (3.5-5.1); SODIUM 133 mmol/L (136-145)
[2020-06-04] MEDS ORDERED: DIATRIZOATE MEGL/DIATRIZOA SOD 30 ML BTL PO ONE (16:53)
[2020-06-04] MEDS: DEXTROSE 5%/LACTATED RINGERS 1,000 ML IV SCH (17:13)
[2020-06-04] MEDS ORDERED: ONDANSETRON HCL INJ 2MG/ML 2ML 2 MG/ML VIAL IV PRN (17:15)
[2020-06-04] MEDS ORDERED: PANTOPRAZOLE 40 MG 10ML VIAL IV SCH (17:15)
[2020-06-04 17:27] LABS: EOSINOPHILS % (MANUAL) 1 % (0-7); LYMPHOCYTES % (MANUAL) 28 % (19-48); MONOCYTES % (MANUAL) 7 % (3.4-9.0); NEUTROPHILS % (MANUAL) 56 % (40-74); PLATELET ESTIMATE SLIGHTLY INCREASED; PLATELET MORPHOLOGY COMMENT NORMAL; RBC MORPHOLOGY COMMENT NORMAL
[2020-06-04] MEDS ORDERED: PREDNISONE 20 MG TAB PO ONE (18:30)
[2020-06-04] MEDS: METOCLOPRAMIDE HCL 10 MG/2ML VIAL IV SCH (18:33)
[2020-06-04 20:00] VITALS: BP 100/69
[2020-06-05] VITALS (8 sets, daily range): BP systolic 106–134; BP diastolic 59–78
[2020-06-05] MEDS: METOCLOPRAMIDE HCL 10 MG/2ML VIAL IV SCH ×5 (00:12→23:45)
[2020-06-05] MEDS ORDERED: PREDNISONE 20 MG TAB PO ONE ×2 (00:30→06:30)
[2020-06-05] MEDS: PANTOPRAZOLE INJ 40 MG in SODIUM CHLORIDE 0.9% 50ML 50 ML IV SCH ×5 (01:44→21:10)
[2020-06-05] MEDS ORDERED: PANTOPRAZOLE 40 MG 10ML VIAL IV SCH (06:00)
[2020-06-05] MEDS: DEXTROSE 5%/LACTATED RINGERS 1,000 ML IV SCH ×3 (06:22→21:45)
[2020-06-05] MEDS ORDERED: DIPHENHYDRAMINE HCL 25 MG CAP PO ONE (06:30)
[2020-06-05] MEDS ORDERED: IOPAMIDOL 370 MG/ML 200 ML INFUS..BTL INJ ONE (09:16)
[2020-06-05] MEDS ORDERED: SODIUM CHLORIDE 0.9% 50ML 50 ML ONE (09:16)
[2020-06-05 10:22] LABS: CLARITY,URINE SL CLOUDY (CLEAR); COLOR,URINE YELLOW (YELLOW); KETONES,URINE NEGATIVE (NEGATIVE); LEUKOCYTE ESTERASE ,URINE NEGATIVE (NEGATIVE); NITRITE,URINE NEGATIVE (NEGATIVE); PROTEIN,URINE DIPSTICK NEGATIVE (NEGATIVE); URINE UROBILINOGEN 0.2 mg/dL (0.2 - 1)
[2020-06-05 10:45] LABS: AMORPHOUS SEDIMENT,URINE FEW (FEW); BACTERIA,URINE FEW /HPF; EPITHELIAL CELLS,URINE FEW /LPF; RBC,URINE 0-5 /HPF (0-5); WBC,URINE (MAN) 0-5 /HPF (0-5)
[2020-06-05] MEDS ORDERED: LIDOCAINE HCL 2% LOCAL INJ 5 ML SDV VIAL INJ ONE (11:56)
[2020-06-05] MEDS ORDERED: PROPOFOL IV EMULSION 10 MG/ML 20 ML VIAL ONE (11:56)
[2020-06-05 14:48] LABS: WBC,FECAL (FECAL LACTOFERRIN) NEGATIVE (NEGATIVE)
[2020-06-05] MEDS ORDERED: HYDROCODONE BIT/ACETAMINOPHEN 2.5 MG/108MG PER 5 ML SOLUTION PO PRN (16:15)
[2020-06-05] MEDS: CHLORDIAZEPOXIDE/CLIDINIUM 1 CAP PO SCH ×2 (17:44→21:10)
[2020-06-06] VITALS (8 sets, daily range): BP systolic 98–129; BP diastolic 59–82
[2020-06-06] MEDS: DEXTROSE 5%/LACTATED RINGERS 1,000 ML IV SCH ×2 (01:39→12:06)
[2020-06-06] MEDS: PANTOPRAZOLE INJ 40 MG in SODIUM CHLORIDE 0.9% 50ML 50 ML IV SCH ×5 (01:39→21:40)
[2020-06-06] MEDS: METOCLOPRAMIDE HCL 10 MG/2ML VIAL IV SCH ×4 (06:03→23:44)
[2020-06-06] MEDS: CHLORDIAZEPOXIDE/CLIDINIUM 1 CAP PO SCH ×4 (08:05→20:23)
[2020-06-06 13:37] LABS: C DIFFICILE TOXIN A&B AMP PROB **POSITIVE** (NEGATIVE)
[2020-06-06] MEDS: VANCOMYCIN HCL 125 MG CAPSULE PO SCH ×2 (17:25→23:44)
[2020-06-06] MEDS ORDERED: PANTOPRAZOLE 40 MG 10ML VIAL ONE (21:29)
[2020-06-07] VITALS (8 sets, daily range): BP systolic 117–135; BP diastolic 70–89
[2020-06-07] MEDS ORDERED: MELATONIN 5 MG TABLET PO PRN (01:00)
[2020-06-07] MEDS ORDERED: PANTOPRAZOLE 40 MG 10ML VIAL ONE ×4 (01:03→15:44)
[2020-06-07] MEDS: PANTOPRAZOLE INJ 40 MG in SODIUM CHLORIDE 0.9% 50ML 50 ML IV SCH ×5 (02:45→22:45)
[2020-06-07] MEDS: DEXTROSE 5%/LACTATED RINGERS 1,000 ML IV SCH (03:45)
[2020-06-07] MEDS: METOCLOPRAMIDE HCL 10 MG/2ML VIAL IV SCH ×3 (06:01→18:07)
[2020-06-07] MEDS: VANCOMYCIN HCL 125 MG CAPSULE PO SCH ×3 (06:01→18:07)
[2020-06-07] MEDS: DICYCLOMINE HCL 20 MG TAB PO PRN ×2 (06:09→22:00)
[2020-06-07] MEDS ORDERED: SODIUM CHLORIDE 0.9% 50ML 50 ML ONE ×3 (07:50→15:57)
[2020-06-07] MEDS: CHLORDIAZEPOXIDE/CLIDINIUM 1 CAP PO SCH ×4 (10:36→21:00)
[2020-06-07] MEDS ORDERED: DEXTROSE 5%/LACTATED RINGERS 1,000 ML IV SCH (17:00)
[2020-06-08] VITALS: BP 115/86
[2020-06-08] MEDS ORDERED: PANTOPRAZOLE 40 MG 10ML VIAL ONE ×2 (03:08→07:55)
[2020-06-08] MEDS: PANTOPRAZOLE INJ 40 MG in SODIUM CHLORIDE 0.9% 50ML 50 ML IV SCH ×2 (03:45→08:05)
[2020-06-08 04:00] VITALS: BP 120/69
[2020-06-08] MEDS: METOCLOPRAMIDE HCL 10 MG/2ML VIAL IV SCH ×2 (05:33)
[2020-06-08] MEDS: VANCOMYCIN HCL 125 MG CAPSULE PO SCH ×3 (05:33→12:08)
[2020-06-08 06:14] LABS: BASOPHILS # (AUTO) 0.1 (0.0-0.1); BASOPHILS % 0.5 % (0.0-1.0); EOSINOPHILS # (AUTO) 0.2 (0.0-0.4); EOSINOPHILS % 1.5 % (0.0-6.0); HEMATOCRIT 34.3 % (34.2-44.1); HEMOGLOBIN 11.2 g/dL (12.0-16.0); LYMPHOCYTES # (AUTO) 4.3 (1.0-3.2); LYMPHOCYTES % 36.5 % (18.0-39.1); MEAN CORPUSCULAR HEMOGLOBIN 29.1 pg (28-32); MEAN CORPUSCULAR HGB CONC 32.7 g/dL (31-35); MEAN CORPUSCULAR VOLUME 89.1 fL (81-99); MONOCYTES # (AUTO) 1.3 (0.2-0.8); MONOCYTES % 10.8 % (4.4-11.3); NEUTROPHILS # (AUTO) 5.8 (2.1-6.9); NEUTROPHILS % 49.9 % (38.7-80.0); PLATELET COUNT 397 x10e3/uL (140-360); RED BLOOD COUNT 3.85 x10e6/uL (3.6-5.1); RED CELL DISTRIBUTION WIDTH 14.6 % (11.7-14.4)
[2020-06-08 06:43] LABS: ALANINE AMINOTRANSFERASE 9 IU/L (0-55); ALBUMIN 2.5 g/dL (3.5-5.0); ALKALINE PHOSPHATASE 56 IU/L (40-150); ANION GAP 11.2 mmol/L (8-16); BLOOD UREA NITROGEN 10 mg/dL (7-26); BUN/CREATININE RATIO 14 (6-25); CALCIUM 7.6 mg/dL (8.4-10.2); CARBON DIOXIDE 27 mmol/L (22-29); CHLORIDE 104 mmol/L (98-107); CREATININE, SERUM 0.69 mg/dL (0.57-1.11); EST GLOMERULAR FILTRATION RATE > 60 ML/MIN (60-); GLUCOSE 100 mg/dL (74-118); POTASSIUM 3.2 mmol/L (3.5-5.1); SODIUM 139 mmol/L (136-145)
[2020-06-08 07:39] VITALS: BP 120/67
[2020-06-08 07:41] VITALS: BP 120/67
[2020-06-08] MEDS: CHLORDIAZEPOXIDE/CLIDINIUM 1 CAP PO SCH ×2 (08:05→12:08)
[2020-06-08] MEDS ORDERED: SODIUM CHLORIDE 0.9% 50ML 50 ML ONE (08:06)
[2020-06-08 11:14] VITALS: BP 115/69
[2020-06-08] MEDS ORDERED: VANCOCIN HCL250 MG PO (13:06)
[2020-06-08] MEDS ORDERED: REGLAN10 MG PO (13:07)
[2020-06-08] MEDS ORDERED: PANTOPRAZOLE SO40 MG PO (13:08)
== END 2020-06-08 13:35 | disposition home or self-care (01) | DRG 372 ==
LOC: MED/SURG 14:35 → MED/SURG3 06-06 20:42
PROVIDERS: ADMIT Surgery; ATTEND Surgery
PROC: 0DB78ZX Excision of Stomach, Pylorus, Via Natural or Artificial Opening Endoscopic, Diagnostic (ICD-10-PCS; 2020-06-05)
PROC: 0DB98ZX Excision of Duodenum, Via Natural or Artificial Opening Endoscopic, Diagnostic (ICD-10-PCS; 2020-06-05)
PROC: 0DD58ZX Extraction of Esophagus, Via Natural or Artificial Opening Endoscopic, Diagnostic (ICD-10-PCS; principal; 2020-06-05 15:30)
DX: A04.72 Enterocolitis due to Clostridium difficile, not specified as recurrent (principal); E44.0 Moderate protein-calorie malnutrition; K92.9 Disease of digestive system, unspecified; K20.90 Esophagitis, unspecified without bleeding; K29.70 Gastritis, unspecified, without bleeding; Z20.822 Contact with and (suspected) exposure to COVID-19; E03.9 Hypothyroidism, unspecified; K21.9 Gastro-esophageal reflux disease without esophagitis; Z85.01 Personal history of malignant neoplasm of esophagus; Z68.35 Body mass index [BMI] 35.0-35.9, adult
CPT/HCPCS: 36415; 43239; 74177; 80053; 81001; 82150; 83630; 85025; 87045; 87177; 87493; 88305; 88312; J2001; J2765; J7512; Q9967

== ENCOUNTER → 2020-07-17 | Outpatient (CLI) | payer MEDICARE ==
[~2020-07-17] MED LIST changes: +PANTOPRAZOLE SO40 MG PO; +REGLAN10 MG PO; +VANCOCIN HCL250 MG PO
== END ==
LOC: NM 08:27
PROVIDERS: ATTEND Internal Medicine Gastroenterology
DX: C16.9 Malignant neoplasm of stomach, unspecified (principal); R10.13 Epigastric pain; R14.0 Abdominal distension (gaseous); E66.3 Overweight; I10 Essential (primary) hypertension; Z71.3 Dietary counseling and surveillance
CPT/HCPCS: 78264; A9541

== ENCOUNTER → 2020-08-27 | Outpatient (CLI) | payer MEDICARE | LOC: DX 09:52 | PROVIDERS: ATTEND Surgery | DX: R10.10 Upper abdominal pain, unspecified (principal); R11.2 Nausea with vomiting, unspecified | CPT/HCPCS: 74246 ==

== ENCOUNTER 2020-09-20 11:35 | Inpatient (IN) | payer MEDICARE ==
[2020-09-19] MEDS: HYDROMORPHONE 1MG/1ML INJ IV PRN (20:31)
[~2020-09-20] VITALS: Ht 154.9 cm; Wt 68.0 kg
[2020-09-20] MEDS ORDERED: SODIUM CHLORIDE 0.9% 1000ML 1,000 ML IV STA (11:38)
[2020-09-20] MEDS ORDERED: ONDANSETRON HCL INJ 2MG/ML 2ML 2 MG/ML VIAL IV STA (11:38)
[2020-09-20] MEDS ORDERED: MORPHINE SULFATE INJ 4 MG/ML INJ 1ML IV PRN (11:45)
[2020-09-20 12:06] LABS: BASOPHILS % 0.2 % (0.0-1.0); EOSINOPHILS % 0.1 % (0.0-6.0); HEMATOCRIT 37.4 % (34.2-44.1); HEMOGLOBIN 12.3 g/dL (12.0-16.0); LYMPHOCYTES # (AUTO) 3.1 (1.0-3.2); LYMPHOCYTES % 18.9 % (18.0-39.1); MEAN CORPUSCULAR HEMOGLOBIN 29.6 pg (28-32); MEAN CORPUSCULAR HGB CONC 32.9 g/dL (31-35); MEAN CORPUSCULAR VOLUME 89.9 fL (81-99); MONOCYTES % 6.3 % (4.4-11.3); NEUTROPHILS % 73.2 % (38.7-80.0); PLATELET COUNT 485 x10e3/uL (140-360); RED BLOOD COUNT 4.16 x10e6/uL (3.6-5.1)
[2020-09-20 12:25] LABS: ALANINE AMINOTRANSFERASE 46 IU/L (0-55); ALBUMIN 3.4 g/dL (3.5-5.0); ALKALINE PHOSPHATASE 103 IU/L (40-150); ANION GAP 14.6 mmol/L (8-16); BLOOD UREA NITROGEN 16 mg/dL (7-26); BUN/CREATININE RATIO 21 (6-25); CALCIUM 9.2 mg/dL (8.4-10.2); CARBON DIOXIDE 21 mmol/L (22-29); CHLORIDE 104 mmol/L (98-107); CREATINE KINASE 10 IU/L (29-168); CREATININE, SERUM 0.75 mg/dL (0.57-1.11); EST GLOMERULAR FILTRATION RATE 76 ML/MIN (60-); GLUCOSE 133 mg/dL (74-118); POTASSIUM 3.6 mmol/L (3.5-5.1); SODIUM 136 mmol/L (136-145)
[2020-09-20] MEDS ORDERED: DIPHENHYDRAMINE HCL INJ 50 MG/ML VIAL IV ONE ×2 (12:30→16:45)
[2020-09-20] MEDS ORDERED: METHYLPREDNISOLONE SOD SUCC 125 MG/2ML VIAL IV ONE (12:30)
[2020-09-20] MEDS ORDERED: FENTANYL CITRATE/PF 100MCG/2 ML INJ IV ONE (13:45)
[2020-09-20 14:30] LABS: CLARITY,URINE SL CLOUDY (CLEAR); COLOR,URINE YELLOW (YELLOW); KETONES,URINE 1+ (NEGATIVE); LEUKOCYTE ESTERASE ,URINE SMALL (NEGATIVE); NITRITE,URINE NEGATIVE (NEGATIVE); PROTEIN,URINE DIPSTICK NEGATIVE (NEGATIVE); URINE UROBILINOGEN 0.2 mg/dL (0.2 - 1)
[2020-09-20 14:44] LABS: RBC,URINE 0-5 /HPF (0-5)
[2020-09-20 14:45] LABS: BACTERIA,URINE MODERATE /HPF; EPITHELIAL CELLS,URINE MODERATE /LPF
[2020-09-20] MEDS ORDERED: MEGESTROL ACETA40 MG PO (14:45)
[2020-09-20] MEDS ORDERED: HYDROCODON-ACE1 EA11 PO (14:45)
[2020-09-20] MEDS ORDERED: ALPRAZOLAM0.5 M1 PO (14:45)
[2020-09-20] MEDS ORDERED: DICYCLOMINE HCL10 MG PO (14:45)
[2020-09-20] MEDS ORDERED: SERTRALINE HCL50 MG PO (14:45)
[2020-09-20 15:16] VITALS: BP 137/76
[2020-09-20 15:23] VITALS: BP 137/76
[2020-09-20] MEDS: SODIUM CHLORIDE 0.9% 1000ML 1,000 ML IV SCH (15:29)
[2020-09-20] MEDS: HYDROMORPHONE 1MG/1ML INJ IV PRN ×3 (15:41→20:31)
[2020-09-20] MEDS ORDERED: ONDANSETRON HCL INJ 2MG/ML 2ML 2 MG/ML VIAL IV PRN (15:45)
[2020-09-20] MEDS ORDERED: HYDROCORTISONE SOD SUCCINATE 100 MG VIAL IV ONE (16:45)
[2020-09-20] MEDS ORDERED: IOPAMIDOL 370 MG/ML 200 ML INFUS..BTL INJ ONE (17:56)
[2020-09-20] MEDS ORDERED: SODIUM CHLORIDE 0.9% 50ML 50 ML ONE (17:56)
[2020-09-20] MEDS: PROMETHAZINE 12.5MG/ NACL 0.9% 12.5 MG/50 ML BAG IV PRN (19:45)
[2020-09-20 20:00] VITALS: BP 124/80
[2020-09-20] MEDS ORDERED: SODIUM CHLORIDE 0.9% 250ML 250 ML ONE (20:00)
[2020-09-20] MEDS: PIPERACILLIN/TAZOBACTAM 3.375 GM in SODIUM CHLORIDE 0.9% 50ML 50 ML IV SCH (20:00)
[2020-09-20] MEDS: Pantoprazole IV 40 MG in SODIUM CHLORIDE 0.9% 50ML 50 ML IV SCH (20:30)
[2020-09-20] MEDS: MAGNESIUM/ALUMINUM/SIMETHICONE 30 ML UDC PO SCH ×2 (22:00→22:45)
[2020-09-21] VITALS (8 sets, daily range): BP systolic 123–161; BP diastolic 74–96
[2020-09-21] MEDS: HYDROMORPHONE 1MG/1ML INJ IV PRN ×3 (00:39→21:03)
[2020-09-21] MEDS: PROMETHAZINE 12.5MG/ NACL 0.9% 12.5 MG/50 ML BAG IV PRN ×4 (01:55→21:03)
[2020-09-21] MEDS: Pantoprazole IV 40 MG in SODIUM CHLORIDE 0.9% 50ML 50 ML IV SCH ×5 (01:55→23:41)
[2020-09-21] MEDS: SODIUM CHLORIDE 0.9% 1000ML 1,000 ML IV SCH ×4 (02:04→21:05)
[2020-09-21] MEDS: PIPERACILLIN/TAZOBACTAM 3.375 GM in SODIUM CHLORIDE 0.9% 50ML 50 ML IV SCH ×4 (02:30→20:02)
[2020-09-21 05:06] LABS: BASOPHILS # (AUTO) 0.1 (0.0-0.1); BASOPHILS % 0.3 % (0.0-1.0); HEMATOCRIT 34.5 % (34.2-44.1); HEMOGLOBIN 11.5 g/dL (12.0-16.0); LYMPHOCYTES # (AUTO) 3.5 (1.0-3.2); LYMPHOCYTES % 15.3 % (18.0-39.1); MEAN CORPUSCULAR HEMOGLOBIN 30.2 pg (28-32); MEAN CORPUSCULAR HGB CONC 33.3 g/dL (31-35); MEAN CORPUSCULAR VOLUME 90.6 fL (81-99); MONOCYTES # (AUTO) 1.3 (0.2-0.8); MONOCYTES % 5.6 % (4.4-11.3); NEUTROPHILS # (AUTO) 17.8 (2.1-6.9); NEUTROPHILS % 77.5 % (38.7-80.0); PLATELET COUNT 456 x10e3/uL (140-360); RED BLOOD COUNT 3.81 x10e6/uL (3.6-5.1)
[2020-09-21 05:39] LABS: ALBUMIN 2.7 g/dL (3.5-5.0); ALBUMIN/GLOBULIN RATIO 0.9 (0.8-2.0); ANION GAP 13.6 mmol/L (8-16); CALCIUM 8.4 mg/dL (8.4-10.2); CREATININE, SERUM 0.68 mg/dL (0.57-1.11); POTASSIUM 3.6 mmol/L (3.5-5.1)
[2020-09-21] MEDS: MAGNESIUM/ALUMINUM/SIMETHICONE 30 ML UDC PO SCH ×3 (06:00→21:03)
[2020-09-21] MEDS: ACETAMINOPHEN 1000 MG/100 ML IV PRN ×2 (12:55→16:44)
[2020-09-21] MEDS ORDERED: IRBESARTAN150 MG PO (17:07)
[2020-09-21] MEDS ORDERED: LEVOTHYROXINE50 MCG PO (17:07)
[2020-09-21] MEDS: METOCLOPRAMIDE HCL 10 MG/2ML VIAL IV SCH ×2 (18:34→23:42)
[2020-09-22] VITALS (8 sets, daily range): BP systolic 131–160; BP diastolic 71–81
[2020-09-22] MEDS: HYDROMORPHONE 1MG/1ML INJ IV PRN ×4 (01:25→23:51)
[2020-09-22] MEDS: PROMETHAZINE 12.5MG/ NACL 0.9% 12.5 MG/50 ML BAG IV PRN ×2 (01:25→20:30)
[2020-09-22] MEDS: SODIUM CHLORIDE 0.9% 1000ML 1,000 ML IV SCH ×4 (01:27→21:19)
[2020-09-22] MEDS: Pantoprazole IV 40 MG in SODIUM CHLORIDE 0.9% 50ML 50 ML IV SCH ×5 (02:00→21:19)
[2020-09-22] MEDS: PIPERACILLIN/TAZOBACTAM 3.375 GM in SODIUM CHLORIDE 0.9% 50ML 50 ML IV SCH ×2 (02:32→08:55)
[2020-09-22] MEDS: MAGNESIUM/ALUMINUM/SIMETHICONE 30 ML UDC PO SCH (05:21)
[2020-09-22] MEDS: METOCLOPRAMIDE HCL 10 MG/2ML VIAL IV SCH ×4 (06:34→23:51)
[2020-09-22 09:11] LABS: BASOPHILS # (AUTO) 0.1 (0.0-0.1); BASOPHILS % 0.3 % (0.0-1.0); EOSINOPHILS % 0.1 % (0.0-6.0); HEMATOCRIT 34.8 % (34.2-44.1); HEMOGLOBIN 11.2 g/dL (12.0-16.0); LYMPHOCYTES # (AUTO) 4.1 (1.0-3.2); LYMPHOCYTES % 17.1 % (18.0-39.1); MEAN CORPUSCULAR HEMOGLOBIN 29.3 pg (28-32); MEAN CORPUSCULAR HGB CONC 32.2 g/dL (31-35); MEAN CORPUSCULAR VOLUME 91.1 fL (81-99); MONOCYTES % 8.5 % (4.4-11.3); NEUTROPHILS # (AUTO) 17.6 (2.1-6.9); NEUTROPHILS % 72.8 % (38.7-80.0); PLATELET COUNT 481 x10e3/uL (140-360); RED BLOOD COUNT 3.82 x10e6/uL (3.6-5.1); RED CELL DISTRIBUTION WIDTH 17.3 % (11.7-14.4)
[2020-09-22 09:31] LABS: ANION GAP 13.5 mmol/L (8-16); CALCIUM 8.4 mg/dL (8.4-10.2); CREATININE, SERUM 0.74 mg/dL (0.57-1.11); POTASSIUM 3.5 mmol/L (3.5-5.1)
[2020-09-22] MEDS ORDERED: ALPRAZOLAM 0.5 MG TAB PO PRN ×2 (11:15→11:30)
[2020-09-22] MEDS ORDERED: MAGNESIUM/ALUMINUM/SIMETHICONE 30 ML UDC PO PRN (11:45)
[2020-09-22] MEDS ORDERED: SERTRALINE HCL 50 MG TAB PO SCH (12:00)
[2020-09-22] MEDS: IRBESARTAN 150 MG TAB PO SCH (12:16)
[2020-09-22] MEDS: ONDANSETRON HCL INJ 2MG/ML 2ML 2 MG/ML VIAL IV PRN ×2 (14:27→23:51)
[2020-09-22] MEDS ORDERED: PNEUMOCOCCAL VACCINE POLYVALENT 23 MCG/0.5 ML VIAL IM ONE ×2 (18:00→20:00)
[2020-09-22] MEDS: SERTRALINE HCL 50 MG TAB PO SCH ×2 (20:41→20:43)
[2020-09-22] MEDS: METRONIDAZOLE 500MG/NS 100ML 100 ML IV SCH (21:19)
[2020-09-23] VITALS (8 sets, daily range): BP systolic 136–174; BP diastolic 76–85
[2020-09-23] MEDS: Pantoprazole IV 40 MG in SODIUM CHLORIDE 0.9% 50ML 50 ML IV SCH ×4 (02:56→23:00)
[2020-09-23 05:00] LABS: BASOPHILS # (AUTO) 0.1 (0.0-0.1); BASOPHILS % 0.4 % (0.0-1.0); EOSINOPHILS # (AUTO) 0.1 (0.0-0.4); EOSINOPHILS % 0.8 % (0.0-6.0); HEMATOCRIT 30.8 % (34.2-44.1); LYMPHOCYTES # (AUTO) 4.6 (1.0-3.2); LYMPHOCYTES % 29.5 % (18.0-39.1); MEAN CORPUSCULAR HEMOGLOBIN 29.1 pg (28-32); MEAN CORPUSCULAR HGB CONC 32.5 g/dL (31-35); MEAN CORPUSCULAR VOLUME 89.5 fL (81-99); MONOCYTES # (AUTO) 1.7 (0.2-0.8); MONOCYTES % 11.3 % (4.4-11.3); NEUTROPHILS # (AUTO) 8.7 (2.1-6.9); NEUTROPHILS % 56.1 % (38.7-80.0); PLATELET COUNT 436 x10e3/uL (140-360); RED BLOOD COUNT 3.44 x10e6/uL (3.6-5.1); RED CELL DISTRIBUTION WIDTH 16.9 % (11.7-14.4)
[2020-09-23] MEDS: METOCLOPRAMIDE HCL 10 MG/2ML VIAL IV SCH ×4 (05:08→23:07)
[2020-09-23] MEDS: METRONIDAZOLE 500MG/NS 100ML 100 ML IV SCH ×3 (05:08→21:22)
[2020-09-23 05:43] LABS: ALBUMIN 2.7 g/dL (3.5-5.0); ALBUMIN/GLOBULIN RATIO 1.1 (0.8-2.0); ANION GAP 10.8 mmol/L (8-16); CALCIUM 7.7 mg/dL (8.4-10.2); CREATININE, SERUM 0.69 mg/dL (0.57-1.11)
[2020-09-23 05:51] LABS: POTASSIUM 2.8 mmol/L (3.5-5.1)
[2020-09-23 05:59] LABS: PHOSPHORUS 2.6 MG/DL (2.3-4.7)
[2020-09-23 06:20] LABS: THYROID STIMULATING HORMONE 3.424 uIU/mL (0.350-4.940)
[2020-09-23] MEDS: CEFTRIAXONE 1 GM in SODIUM CHLORIDE 0.9% 50ML 50 ML IV SCH (08:27)
[2020-09-23] MEDS ORDERED: IRBESARTAN 150 MG TAB PO SCH (09:00)
[2020-09-23] MEDS: IRBESARTAN 150 MG TAB PO SCH (09:02)
[2020-09-23] MEDS: KCL 20 MEQ PACKET/ ORAL SOLN PO SCH ×2 (09:38→15:25)
[2020-09-23] MEDS: ONDANSETRON HCL INJ 2MG/ML 2ML 2 MG/ML VIAL IV PRN ×3 (09:38→20:16)
[2020-09-23] MEDS ORDERED: POTASSIUM PHOSPHATE 15 MM in SODIUM CHLORIDE 0.9% 250ML 250 ML IV ONE (10:00)
[2020-09-23] MEDS ORDERED: DICYCLOMINE HCL 10 MG CAP PO PRN (13:00)
[2020-09-23] MEDS ORDERED: KCL 20 MEQ PACKET/ ORAL SOLN PO SCH (15:30)
[2020-09-23] MEDS: SUCRALFATE 1 GM/10 ML SUSP PO SCH ×2 (15:36→20:26)
[2020-09-23] MEDS: HYDROMORPHONE 1MG/1ML INJ IV PRN (19:30)
[2020-09-23] MEDS ORDERED: PREDNISONE 20 MG TAB PO ONE (20:00)
[2020-09-23] MEDS: SOD CHL 0.45%/POT CHL 20MEQ 1,000 ML IV SCH (20:07)
[2020-09-23] MEDS: SERTRALINE HCL 50 MG TAB PO SCH (20:25)
[2020-09-23] MEDS ORDERED: SODIUM CHLORIDE 0.9% 250ML 250 ML ONE (20:49)
[2020-09-24] VITALS (7 sets, daily range): BP systolic 106–153; BP diastolic 57–80
[2020-09-24] MEDS: Pantoprazole IV 40 MG in SODIUM CHLORIDE 0.9% 50ML 50 ML IV SCH ×6 (01:54→23:50)
[2020-09-24] MEDS ORDERED: PREDNISONE 20 MG TAB PO ONE ×2 (02:00→08:00)
[2020-09-24] MEDS: PROMETHAZINE 12.5MG/ NACL 0.9% 12.5 MG/50 ML BAG IV PRN (05:00)
[2020-09-24] MEDS: HYDROMORPHONE 1MG/1ML INJ IV PRN ×3 (05:00→23:16)
[2020-09-24 05:42] LABS: ANION GAP 14.7 mmol/L (8-16); CALCIUM 8.3 mg/dL (8.4-10.2); CREATININE, SERUM 0.67 mg/dL (0.57-1.11); POTASSIUM 3.7 mmol/L (3.5-5.1)
[2020-09-24] MEDS: METRONIDAZOLE 500MG/NS 100ML 100 ML IV SCH ×3 (05:52→22:48)
[2020-09-24] MEDS: METOCLOPRAMIDE HCL 10 MG/2ML VIAL IV SCH ×4 (05:52→23:21)
[2020-09-24 07:25] LABS: BASOPHILS % 0.2 % (0.0-1.0); HEMATOCRIT 33.3 % (34.2-44.1); HEMOGLOBIN 10.7 g/dL (12.0-16.0); LYMPHOCYTES % 22.8 % (18.0-39.1); MEAN CORPUSCULAR HGB CONC 32.1 g/dL (31-35); MEAN CORPUSCULAR VOLUME 90.2 fL (81-99); MONOCYTES # (AUTO) 0.2 (0.2-0.8); MONOCYTES % 1.4 % (4.4-11.3); NEUTROPHILS # (AUTO) 9.4 (2.1-6.9); NEUTROPHILS % 71.8 % (38.7-80.0); PLATELET COUNT 342 x10e3/uL (140-360); RED BLOOD COUNT 3.69 x10e6/uL (3.6-5.1)
[2020-09-24] MEDS ORDERED: DIPHENHYDRAMINE HCL 25 MG CAP PO ONE (08:00)
[2020-09-24] MEDS: CEFTRIAXONE 1 GM in SODIUM CHLORIDE 0.9% 50ML 50 ML IV SCH (09:49)
[2020-09-24] MEDS: SUCRALFATE 1 GM/10 ML SUSP PO SCH ×4 (09:49→22:00)
[2020-09-24] MEDS: IRBESARTAN 150 MG TAB PO SCH (09:50)
[2020-09-24] MEDS ORDERED: SODIUM CHLORIDE 0.9% 50ML 50 ML ONE ×2 (11:38→12:49)
[2020-09-24] MEDS ORDERED: IOPAMIDOL 370 MG/ML 200 ML INFUS..BTL INJ ONE (11:38)
[2020-09-24] MEDS: SOD CHL 0.45%/POT CHL 20MEQ 1,000 ML IV SCH (11:54)
[2020-09-24] MEDS ORDERED: GADOBENATE DIMEGLUMINE 1 ML IV ONE (12:49)
[2020-09-24] MEDS: VANCOMYCIN 250MG/5ML ORAL SOLN PO SCH ×2 (18:00→23:48)
[2020-09-24] MEDS: PERIPHERAL TPN FORMULA 1 BAG IV SCH (20:00)
[2020-09-24] MEDS: SERTRALINE HCL 50 MG TAB PO SCH (21:00)
[2020-09-24] MEDS: ONDANSETRON HCL INJ 2MG/ML 2ML 2 MG/ML VIAL IV PRN (23:17)
[2020-09-25 01:46] VITALS: BP 137/76
[2020-09-25] MEDS: ONDANSETRON HCL INJ 2MG/ML 2ML 2 MG/ML VIAL IV PRN ×2 (05:26→20:56)
[2020-09-25] MEDS: HYDROMORPHONE 1MG/1ML INJ IV PRN ×2 (05:26→20:56)
[2020-09-25] MEDS: Pantoprazole IV 40 MG in SODIUM CHLORIDE 0.9% 50ML 50 ML IV SCH ×4 (05:26→20:55)
[2020-09-25] MEDS: VANCOMYCIN 250MG/5ML ORAL SOLN PO SCH ×4 (06:00→23:35)
[2020-09-25] MEDS: METRONIDAZOLE 500MG/NS 100ML 100 ML IV SCH (06:00)
[2020-09-25] MEDS: METOCLOPRAMIDE HCL 10 MG/2ML VIAL IV SCH ×4 (06:00→23:35)
[2020-09-25 06:04] VITALS: BP 149/90
[2020-09-25] MEDS: SUCRALFATE 1 GM/10 ML SUSP PO SCH ×4 (07:30→20:55)
[2020-09-25 08:11] VITALS: BP 149/90
[2020-09-25 08:42] VITALS: BP 149/90
[2020-09-25] MEDS: SERTRALINE HCL 50 MG TAB PO SCH (09:00)
[2020-09-25] MEDS: IRBESARTAN 150 MG TAB PO SCH (09:00)
[2020-09-25] MEDS: GABAPENTIN 100 MG CAP PO SCH ×3 (09:00→20:55)
[2020-09-25 10:38] LABS: BASOPHILS # (AUTO) 0.1 (0.0-0.1); BASOPHILS % 0.3 % (0.0-1.0); EOSINOPHILS # (AUTO) 0.1 (0.0-0.4); EOSINOPHILS % 0.5 % (0.0-6.0); HEMATOCRIT 31.2 % (34.2-44.1); HEMOGLOBIN 10.2 g/dL (12.0-16.0); LYMPHOCYTES # (AUTO) 4.6 (1.0-3.2); LYMPHOCYTES % 22.5 % (18.0-39.1); MEAN CORPUSCULAR HEMOGLOBIN 30.7 pg (28-32); MEAN CORPUSCULAR HGB CONC 32.7 g/dL (31-35); MONOCYTES # (AUTO) 1.8 (0.2-0.8); MONOCYTES % 8.6 % (4.4-11.3); NEUTROPHILS # (AUTO) 13.4 (2.1-6.9); NEUTROPHILS % 65.4 % (38.7-80.0); PLATELET COUNT 370 x10e3/uL (140-360); RED BLOOD COUNT 3.32 x10e6/uL (3.6-5.1); RED CELL DISTRIBUTION WIDTH 17.5 % (11.7-14.4)
[2020-09-25] MEDS: DICYCLOMINE HCL 10 MG CAP PO SCH ×2 (11:30→16:30)
[2020-09-25 11:50] LABS: ANION GAP 15.9 mmol/L (8-16); CALCIUM 7.5 mg/dL (8.4-10.2); CREATININE, SERUM 0.72 mg/dL (0.57-1.11); POTASSIUM 4.9 mmol/L (3.5-5.1)
[2020-09-25] MEDS: ALPRAZOLAM 0.25 MG TAB PO SCH ×2 (14:00→20:56)
[2020-09-25] MEDS ORDERED: FENTANYL CITRATE/PF 100MCG/2 ML INJ ONE (14:12)
[2020-09-25] MEDS ORDERED: MIDAZOLAM HCL 2 MG/2 ML VIAL ONE (14:12)
[2020-09-25] MEDS ORDERED: PROPOFOL IV EMULSION 10 MG/ML 20 ML VIAL ONE (14:14)
[2020-09-25] MEDS ORDERED: LIDOCAINE HCL 2% LOCAL INJ 5 ML SDV VIAL INJ ONE (14:14)
[2020-09-25] MEDS ORDERED: GLYCOPYRROLATE INJ 0.2 MG/ML VIAL ONE (14:14)
[2020-09-25] MEDS ORDERED: POVIDONE IODINE 0.05% 0.05 % ML PO ONE (14:14)
[2020-09-25 20:00] VITALS: BP 137/69
[2020-09-25] MEDS: PERIPHERAL TPN FORMULA 1 BAG IV SCH (20:31)
[2020-09-25] MEDS: CHOLESTYRAMINE 4 GM PACKET PO SCH (20:55)
[2020-09-25] MEDS: SALINE 0.65% NAS SOLN 1 SPRAY BTL SCH (20:56)
[2020-09-25] MEDS: MIRTAZAPINE 15 MG TAB PO SCH (20:56)
[2020-09-25] MEDS ORDERED: SERTRALINE HCL 50 MG TAB PO SCH (21:00)
[2020-09-26] VITALS (8 sets, daily range): BP systolic 135–150; BP diastolic 78–94
[2020-09-26] MEDS: ALPRAZOLAM 0.25 MG TAB PO SCH ×3 (01:06→21:30)
[2020-09-26] MEDS: Pantoprazole IV 40 MG in SODIUM CHLORIDE 0.9% 50ML 50 ML IV SCH ×4 (01:06→21:00)
[2020-09-26 05:43] LABS: BASOPHILS # (AUTO) 0.1 (0.0-0.1); BASOPHILS % 0.3 % (0.0-1.0); EOSINOPHILS # (AUTO) 0.4 (0.0-0.4); EOSINOPHILS % 2.1 % (0.0-6.0); HEMATOCRIT 33.9 % (34.2-44.1); HEMOGLOBIN 11.2 g/dL (12.0-16.0); LYMPHOCYTES % 32.4 % (18.0-39.1); MEAN CORPUSCULAR HEMOGLOBIN 29.7 pg (28-32); MEAN CORPUSCULAR VOLUME 89.9 fL (81-99); MONOCYTES # (AUTO) 1.9 (0.2-0.8); MONOCYTES % 10.2 % (4.4-11.3); NEUTROPHILS # (AUTO) 9.8 (2.1-6.9); NEUTROPHILS % 52.9 % (38.7-80.0); PLATELET COUNT 386 x10e3/uL (140-360); RED BLOOD COUNT 3.77 x10e6/uL (3.6-5.1); RED CELL DISTRIBUTION WIDTH 17.4 % (11.7-14.4)
[2020-09-26] MEDS: METOCLOPRAMIDE HCL 10 MG/2ML VIAL IV SCH ×3 (05:56→17:26)
[2020-09-26] MEDS: SALINE 0.65% NAS SOLN 1 SPRAY BTL SCH ×5 (05:57→21:50)
[2020-09-26] MEDS: VANCOMYCIN 250MG/5ML ORAL SOLN PO SCH ×3 (05:57→17:26)
[2020-09-26 06:15] LABS: ALBUMIN 2.6 g/dL (3.5-5.0); ALBUMIN/GLOBULIN RATIO 1.1 (0.8-2.0); ANION GAP 12.3 mmol/L (8-16); CALCIUM 7.6 mg/dL (8.4-10.2); CREATININE, SERUM 0.57 mg/dL (0.57-1.11); POTASSIUM 3.3 mmol/L (3.5-5.1)
[2020-09-26 06:37] LABS: BURR CELLS SLIGHT; EOSINOPHILS % (MANUAL) 2 % (0-7); LYMPHOCYTES % (MANUAL) 32 % (19-48); MONOCYTES % (MANUAL) 10 % (3.4-9.0); NEUTROPHILS % (MANUAL) 54 % (40-74); PLATELET ESTIMATE SLIGHTLY INCREASED
[2020-09-26 06:38] LABS: ACANTHOCYTES FEW; ANISOCYTOSIS SLIGHT
[2020-09-26 06:39] LABS: PLATELET MORPHOLOGY COMMENT FEW EDTA CLUMPING; RBC MORPHOLOGY COMMENT ABNORMAL
[2020-09-26] MEDS: FLUTICASONE PROPIONATE NASAL SPRAY NS SCH (08:44)
[2020-09-26] MEDS: SERTRALINE HCL 50 MG TAB PO SCH (08:44)
[2020-09-26] MEDS: SUCRALFATE 1 GM/10 ML SUSP PO SCH ×4 (08:44→21:00)
[2020-09-26] MEDS: IRBESARTAN 150 MG TAB PO SCH (08:45)
[2020-09-26] MEDS: GABAPENTIN 100 MG CAP PO SCH ×3 (08:45→21:00)
[2020-09-26] MEDS: CHOLESTYRAMINE 4 GM PACKET PO SCH ×4 (08:45→21:00)
[2020-09-26] MEDS ORDERED: POTASSIUM CHLORIDE 20MEQ/100ML 200 ML IV ONE (09:00)
[2020-09-26] MEDS ORDERED: SODIUM CHLORIDE 0.9% 500ML 500 ML ONE (09:25)
[2020-09-26] MEDS ORDERED: METOCLOPRAMIDE HCL 10 MG/2ML VIAL IV SCH (12:00)
[2020-09-26] MEDS: PERIPHERAL TPN FORMULA 1 BAG IV SCH (20:00)
[2020-09-26] MEDS: MIRTAZAPINE 15 MG TAB PO SCH (21:00)
[2020-09-27] VITALS (9 sets, daily range): BP systolic 138–162; BP diastolic 79–89
[2020-09-27] MEDS: Pantoprazole IV 40 MG in SODIUM CHLORIDE 0.9% 50ML 50 ML IV SCH ×5 (02:00→22:00)
[2020-09-27 05:34] LABS: BASOPHILS # (AUTO) 0.1 (0.0-0.1); BASOPHILS % 0.4 % (0.0-1.0); EOSINOPHILS # (AUTO) 0.3 (0.0-0.4); EOSINOPHILS % 1.7 % (0.0-6.0); HEMATOCRIT 33.1 % (34.2-44.1); HEMOGLOBIN 10.9 g/dL (12.0-16.0); LYMPHOCYTES # (AUTO) 5.7 (1.0-3.2); MEAN CORPUSCULAR HEMOGLOBIN 29.7 pg (28-32); MEAN CORPUSCULAR HGB CONC 32.9 g/dL (31-35); MEAN CORPUSCULAR VOLUME 90.2 fL (81-99); MONOCYTES # (AUTO) 1.7 (0.2-0.8); NEUTROPHILS # (AUTO) 10.7 (2.1-6.9); NEUTROPHILS % 56.2 % (38.7-80.0); PLATELET COUNT 300 x10e3/uL (140-360); RED BLOOD COUNT 3.67 x10e6/uL (3.6-5.1)
[2020-09-27] MEDS: METOCLOPRAMIDE HCL 10 MG/2ML VIAL IV SCH ×4 (05:49→17:03)
[2020-09-27] MEDS: VANCOMYCIN 250MG/5ML ORAL SOLN PO SCH ×3 (05:50→12:25)
[2020-09-27] MEDS: SALINE 0.65% NAS SOLN 1 SPRAY BTL SCH ×5 (05:50→22:00)
[2020-09-27] MEDS: ALPRAZOLAM 0.25 MG TAB PO SCH ×3 (06:00→21:45)
[2020-09-27 06:10] LABS: ANION GAP 13.7 mmol/L (8-16); CALCIUM 7.6 mg/dL (8.4-10.2); CREATININE, SERUM 0.64 mg/dL (0.57-1.11); POTASSIUM 3.7 mmol/L (3.5-5.1)
[2020-09-27 07:10] LABS: EOSINOPHILS % (MANUAL) 1 % (0-7); LYMPHOCYTES % (MANUAL) 33 % (19-48); MONOCYTES % (MANUAL) 10 % (3.4-9.0); MYELOCYTES % (MANUAL) 2 % (0-0); NEUTROPHILS % (MANUAL) 54 % (40-74); PLATELET ESTIMATE ADEQUATE
[2020-09-27 07:11] LABS: ACANTHOCYTES FEW; ANISOCYTOSIS SLIGHT; BURR CELLS SLIGHT
[2020-09-27 07:12] LABS: RBC MORPHOLOGY COMMENT ABNORMAL
[2020-09-27 07:13] LABS: PLATELET MORPHOLOGY COMMENT FEW GIANT
[2020-09-27] MEDS ORDERED: SODIUM CHLORIDE 0.9% 100 ML ONE (07:31)
[2020-09-27] MEDS: SERTRALINE HCL 50 MG TAB PO SCH (08:09)
[2020-09-27] MEDS: SUCRALFATE 1 GM/10 ML SUSP PO SCH ×4 (08:09→21:30)
[2020-09-27] MEDS: IRBESARTAN 150 MG TAB PO SCH (08:10)
[2020-09-27] MEDS: GABAPENTIN 100 MG CAP PO SCH ×3 (08:10→21:30)
[2020-09-27] MEDS: CHOLESTYRAMINE 4 GM PACKET PO SCH ×4 (08:10→21:00)
[2020-09-27] MEDS: FLUTICASONE PROPIONATE NASAL SPRAY NS SCH (08:10)
[2020-09-27] MEDS: VANCOMYCIN HCL 125 MG CAPSULE PO SCH (17:03)
[2020-09-27] MEDS: PERIPHERAL TPN FORMULA 1 BAG IV SCH (20:00)
[2020-09-27] MEDS: MIRTAZAPINE 15 MG TAB PO SCH (21:30)
[2020-09-27] MEDS ORDERED: HYDROMORPHONE 1MG/1ML INJ IV PRN (22:00)
[2020-09-28] VITALS (8 sets, daily range): BP systolic 121–151; BP diastolic 81–90
[2020-09-28] MEDS: Pantoprazole IV 40 MG in SODIUM CHLORIDE 0.9% 50ML 50 ML IV SCH (03:00)
[2020-09-28 05:43] LABS: BASOPHILS # (AUTO) 0.1 (0.0-0.1); BASOPHILS % 0.4 % (0.0-1.0); EOSINOPHILS # (AUTO) 0.2 (0.0-0.4); EOSINOPHILS % 0.8 % (0.0-6.0); HEMATOCRIT 35.9 % (34.2-44.1); HEMOGLOBIN 11.9 g/dL (12.0-16.0); LYMPHOCYTES % 20.4 % (18.0-39.1); MEAN CORPUSCULAR HEMOGLOBIN 29.9 pg (28-32); MEAN CORPUSCULAR HGB CONC 33.1 g/dL (31-35); MEAN CORPUSCULAR VOLUME 90.2 fL (81-99); MONOCYTES # (AUTO) 1.7 (0.2-0.8); MONOCYTES % 6.9 % (4.4-11.3); NEUTROPHILS # (AUTO) 16.7 (2.1-6.9); NEUTROPHILS % 68.3 % (38.7-80.0); PLATELET COUNT 299 x10e3/uL (140-360); RED BLOOD COUNT 3.98 x10e6/uL (3.6-5.1); RED CELL DISTRIBUTION WIDTH 18.2 % (11.7-14.4)
[2020-09-28] MEDS: ALPRAZOLAM 0.25 MG TAB PO SCH ×2 (06:00→21:54)
[2020-09-28] MEDS: VANCOMYCIN HCL 125 MG CAPSULE PO SCH ×4 (06:00→17:32)
[2020-09-28] MEDS: METOCLOPRAMIDE HCL 10 MG/2ML VIAL IV SCH ×2 (06:00)
[2020-09-28] MEDS: SALINE 0.65% NAS SOLN 1 SPRAY BTL SCH ×5 (06:00→21:54)
[2020-09-28] MEDS: GABAPENTIN 100 MG CAP PO SCH ×3 (09:00→21:54)
[2020-09-28] MEDS: SUCRALFATE 1 GM/10 ML SUSP PO SCH ×4 (09:22→21:54)
[2020-09-28] MEDS: FLUTICASONE PROPIONATE NASAL SPRAY NS SCH (09:22)
[2020-09-28] MEDS: SERTRALINE HCL 50 MG TAB PO SCH (09:24)
[2020-09-28] MEDS: IRBESARTAN 150 MG TAB PO SCH (09:24)
[2020-09-28] MEDS: CHOLESTYRAMINE 4 GM PACKET PO SCH ×4 (09:27→21:00)
[2020-09-28] MEDS ORDERED: FUROSEMIDE INJ 10 MG/ML 4 ML VIAL IV ONE (09:30)
[2020-09-28] MEDS: PANTOPRAZOLE SOD 40 MG TABEC PO SCH ×2 (09:34→16:43)
[2020-09-28] MEDS: MIRTAZAPINE 15 MG TAB PO SCH (21:54)
[2020-09-29] VITALS (8 sets, daily range): BP systolic 112–128; BP diastolic 68–99
[2020-09-29] MEDS: VANCOMYCIN HCL 125 MG CAPSULE PO SCH ×4 (05:54→17:21)
[2020-09-29] MEDS: SALINE 0.65% NAS SOLN 1 SPRAY BTL SCH ×5 (05:54→22:00)
[2020-09-29 08:43] LABS: BASOPHILS # (AUTO) 0.1 (0.0-0.1); BASOPHILS % 0.4 % (0.0-1.0); EOSINOPHILS # (AUTO) 0.3 (0.0-0.4); EOSINOPHILS % 1.2 % (0.0-6.0); HEMATOCRIT 36.2 % (34.2-44.1); HEMOGLOBIN 11.6 g/dL (12.0-16.0); LYMPHOCYTES # (AUTO) 5.5 (1.0-3.2); MEAN CORPUSCULAR HEMOGLOBIN 29.7 pg (28-32); MEAN CORPUSCULAR VOLUME 92.6 fL (81-99); MONOCYTES # (AUTO) 1.8 (0.2-0.8); MONOCYTES % 7.8 % (4.4-11.3); NEUTROPHILS # (AUTO) 14.7 (2.1-6.9); NEUTROPHILS % 63.7 % (38.7-80.0); PLATELET COUNT 272 x10e3/uL (140-360); RED BLOOD COUNT 3.91 x10e6/uL (3.6-5.1); RED CELL DISTRIBUTION WIDTH 18.8 % (11.7-14.4)
[2020-09-29] MEDS: SUCRALFATE 1 GM/10 ML SUSP PO SCH ×4 (09:21→21:00)
[2020-09-29] MEDS: PANTOPRAZOLE SOD 40 MG TABEC PO SCH ×2 (09:21→17:21)
[2020-09-29] MEDS: GABAPENTIN 100 MG CAP PO SCH ×3 (09:21→21:00)
[2020-09-29] MEDS: FLUTICASONE PROPIONATE NASAL SPRAY NS SCH (09:22)
[2020-09-29] MEDS: CHOLESTYRAMINE 4 GM PACKET PO SCH ×4 (09:22→21:00)
[2020-09-29] MEDS: IRBESARTAN 150 MG TAB PO SCH (09:22)
[2020-09-29] MEDS: SERTRALINE HCL 50 MG TAB PO SCH (09:22)
[2020-09-29 14:30] LABS: ANION GAP 15.7 mmol/L (8-16); CREATININE, SERUM 0.76 mg/dL (0.57-1.11); POTASSIUM 3.7 mmol/L (3.5-5.1)
[2020-09-29] MEDS: METRONIDAZOLE 500MG/NS 100ML 100 ML IV SCH ×2 (14:39→22:00)
[2020-09-29] MEDS: CEFEPIME 1 GM in SODIUM CHLORIDE 0.9% 50ML 50 ML IV SCH ×2 (15:17→21:30)
[2020-09-29] MEDS: MIRTAZAPINE 15 MG TAB PO SCH (21:00)
[2020-09-29] MEDS: ALPRAZOLAM 0.25 MG TAB PO SCH (21:00)
[2020-09-30] VITALS: BP 108/59
[2020-09-30 04:00] VITALS: BP 119/65
[2020-09-30] MEDS: VANCOMYCIN HCL 125 MG CAPSULE PO SCH ×3 (05:44→11:37)
[2020-09-30] MEDS: CEFEPIME 1 GM in SODIUM CHLORIDE 0.9% 50ML 50 ML IV SCH (05:44)
[2020-09-30] MEDS: SALINE 0.65% NAS SOLN 1 SPRAY BTL SCH ×2 (05:44→09:29)
[2020-09-30] MEDS: METRONIDAZOLE 500MG/NS 100ML 100 ML IV SCH (06:11)
[2020-09-30] MEDS: SERTRALINE HCL 50 MG TAB PO SCH (07:30)
[2020-09-30] MEDS: SUCRALFATE 1 GM/10 ML SUSP PO SCH ×2 (07:30→11:30)
[2020-09-30] MEDS: PANTOPRAZOLE SOD 40 MG TABEC PO SCH (07:30)
[2020-09-30 08:10] VITALS: BP 107/68
[2020-09-30 08:45] VITALS: BP 107/68
[2020-09-30] MEDS: FLUTICASONE PROPIONATE NASAL SPRAY NS SCH (09:00)
[2020-09-30] MEDS: CHOLESTYRAMINE 4 GM PACKET PO SCH (09:00)
[2020-09-30] MEDS: IRBESARTAN 150 MG TAB PO SCH (09:00)
[2020-09-30] MEDS ORDERED: GABAPENTIN 100 MG CAP PO PRN (09:15)
[2020-09-30] MEDS ORDERED: QUESTRAN PACKET4 GM PO (11:22)
[2020-09-30] MEDS ORDERED: ZOLOFT50 MG PO (11:23)
[2020-09-30] MEDS ORDERED: CARAFATE1 GM/10 ML PO (11:23)
[2020-09-30] MEDS ORDERED: VANCOCIN HCL250 MG PO (11:25)
[2020-09-30] MEDS ORDERED: NEURONTIN100 MG PO (11:27)
[2020-09-30] MEDS ORDERED: REMERON15 MG PO (11:28)
== END 2020-09-30 11:54 | disposition home or self-care (01) | DRG 372 ==
LOC: ER 11:40 → ERHOLD 13:44 → MED/SURG 14:27 → OBSVTOIN 09-21 09:27 → MED/SURG2 09-24 17:07
PROVIDERS: ADMIT Surgery; ATTEND Surgery
PROC: 02HV33Z Insertion of Infusion Device into Superior Vena Cava, Percutaneous Approach (ICD-10-PCS; principal; 2020-09-23)
PROC: 3E0436Z Introduction of Nutritional Substance into Central Vein, Percutaneous Approach (ICD-10-PCS; 2020-09-24)
PROC: 0DB38ZX Excision of Lower Esophagus, Via Natural or Artificial Opening Endoscopic, Diagnostic (ICD-10-PCS; 2020-09-25)
PROC: 0DB78ZX Excision of Stomach, Pylorus, Via Natural or Artificial Opening Endoscopic, Diagnostic (ICD-10-PCS; 2020-09-25)
PROC: 0DD38ZX Extraction of Lower Esophagus, Via Natural or Artificial Opening Endoscopic, Diagnostic (ICD-10-PCS; 2020-09-25)
DX: A04.72 Enterocolitis due to Clostridium difficile, not specified as recurrent (principal); N39.0 Urinary tract infection, site not specified; K57.32 Diverticulitis of large intestine without perforation or abscess without bleeding; B37.0 Candidal stomatitis; E46 Unspecified protein-calorie malnutrition; R63.0 Anorexia; K21.9 Gastro-esophageal reflux disease without esophagitis; I10 Essential (primary) hypertension; E03.9 Hypothyroidism, unspecified; Z90.49 Acquired absence of other specified parts of digestive tract; Z91.041 Radiographic dye allergy status; Z90.81 Acquired absence of spleen; Z90.3 Acquired absence of stomach [part of]; H92.01 Otalgia, right ear; H69.81 Other specified disorders of Eustachian tube, right ear; F41.9 Anxiety disorder, unspecified; E87.6 Hypokalemia; R63.4 Abnormal weight loss; Z68.28 Body mass index [BMI] 28.0-28.9, adult; F32.9 Major depressive disorder, single episode, unspecified; K31.84 Gastroparesis; K21.00 Gastro-esophageal reflux disease with esophagitis, without bleeding; K29.70 Gastritis, unspecified, without bleeding
CPT/HCPCS: 36415; 36569; 43239; 71045; 71046; 71260; 72197; 74177; 74183; 80048; 80053; 81001; 82150; 82550; 82553; 82607; 82746; 83690; 83735; 84100; 84443; 84484; 85025; 87493; 88305; 88312; 90732; 93005; 99251; 99284; G0378; J0692; J0696; J1170; J1200; J1720; J1940; J2001; J2250; J2270; J2405; J2543; J2550; J2765; J2930; J3010; J3480; J7030; J7040; J7050; J7512; Q9967

== ENCOUNTER 2020-10-09 15:25 | Emergency (ER) | payer MEDICARE ==
[~2020-10-09] VITALS: Ht 154.9 cm; Wt 68.0 kg
[~2020-10-09 15:25] MED LIST changes: +ALPRAZOLAM0.5 M1 PO; +CARAFATE1 GM/10 ML PO; +DICYCLOMINE HCL10 MG PO; +HYDROCODON-ACE1 EA11 PO; +MEGESTROL ACETA40 MG PO; +NEURONTIN100 MG PO; +QUESTRAN PACKET4 GM PO; +REMERON15 MG PO; +SERTRALINE HCL50 MG PO; +ZOLOFT50 MG PO
[2020-10-09 16:21] LABS: CLARITY,URINE SL CLOUDY (CLEAR); COLOR,URINE STRAW (YELLOW)
[2020-10-09 16:22] LABS: BASOPHILS % 0.3 % (0.0-1.0); HEMATOCRIT 39.3 % (34.2-44.1); HEMOGLOBIN 12.7 g/dL (12.0-16.0); KETONES,URINE 2+ (NEGATIVE); LEUKOCYTE ESTERASE ,URINE NEGATIVE (NEGATIVE); LYMPHOCYTES # (AUTO) 2.5 (1.0-3.2); MEAN CORPUSCULAR HEMOGLOBIN 29.9 pg (28-32); MEAN CORPUSCULAR HGB CONC 32.3 g/dL (31-35); MEAN CORPUSCULAR VOLUME 92.5 fL (81-99); MONOCYTES # (AUTO) 0.3 (0.2-0.8); MONOCYTES % 2.3 % (4.4-11.3); NEUTROPHILS # (AUTO) 9.5 (2.1-6.9); NEUTROPHILS % 76.5 % (38.7-80.0); NITRITE,URINE NEGATIVE (NEGATIVE); PLATELET COUNT 415 x10e3/uL (140-360); PROTEIN,URINE DIPSTICK 1+ (NEGATIVE); RED BLOOD COUNT 4.25 x10e6/uL (3.6-5.1); URINE UROBILINOGEN 0.2 mg/dL (0.2 - 1)
[2020-10-09 16:35] LABS: ALBUMIN 3.8 g/dL (3.5-5.0); ALBUMIN/GLOBULIN RATIO 1.2 (0.8-2.0); ANION GAP 14.2 mmol/L (8-16); BACTERIA,URINE FEW /HPF; CALCIUM 9.3 mg/dL (8.4-10.2); CREATININE, SERUM 0.72 mg/dL (0.57-1.11); POTASSIUM 4.2 mmol/L (3.5-5.1)
[2020-10-09] MEDS ORDERED: ONDANSETRON HCL INJ 2MG/ML 2ML 2 MG/ML VIAL IV STA (18:01)
[2020-10-09] MEDS ORDERED: MORPHINE SULFATE INJ 4 MG/ML INJ 1ML IV ONE (18:15)
[2020-10-09] MEDS ORDERED: HYDROMORPHONE 1MG/1ML INJ IV STA (18:25)
[2020-10-09 18:27] LABS: AMYLASE 29 U/L (25-125); LIPASE 5 U/L (8-78)
[2020-10-09] MEDS ORDERED: HYDROMORPHONE 1MG/1ML INJ ONE (18:38)
[2020-10-09] MEDS ORDERED: HYDROMORPHONE 1MG/1ML INJ IV NR (19:00)
== END 2020-10-09 18:37 | disposition home or self-care (01) ==
LOC: ER 17:59
DX: R10.13 Epigastric pain (principal); I10 Essential (primary) hypertension; E03.9 Hypothyroidism, unspecified; M81.0 Age-related osteoporosis without current pathological fracture
CPT/HCPCS: 36415; 80053; 81001; 82150; 83690; 85025; 99283; C9113; J1170; J2405

== ENCOUNTER → 2021-02-01 | Outpatient (CLI) | payer OTHER, MEDICARE ==
[~2021-02-01] MED LIST changes: +COVID-19 VACC, MRNA(MODERNA)/PF 100 MCG/0.5 ML VIAL IM ONE
== END ==
LOC: VACCPMC 09:58
DX: Z23 Encounter for immunization (principal); Z20.822 Contact with and (suspected) exposure to COVID-19
CPT/HCPCS: 91301

== ENCOUNTER → 2022-04-04 | Day surgery (SDC) | payer MEDICARE ==
[2022-04-01 12:13] LABS: BASOPHILS # (AUTO) 0.1 (0.0-0.1); BASOPHILS % 0.6 % (0.0-1.0); EOSINOPHILS # (AUTO) 0.2 (0.0-0.4); EOSINOPHILS % 1.5 % (0.0-6.0); HEMATOCRIT 35.7 % (34.2-44.1); HEMOGLOBIN 10.9 g/dL (12.0-16.0); LYMPHOCYTES % 38.3 % (18.0-39.1); MEAN CORPUSCULAR HEMOGLOBIN 27.2 pg (28-32); MEAN CORPUSCULAR HGB CONC 30.5 g/dL (31-35); MONOCYTES # (AUTO) 1.1 (0.2-0.8); MONOCYTES % 10.7 % (4.4-11.3); NEUTROPHILS # (AUTO) 5.1 (2.1-6.9); NEUTROPHILS % 48.8 % (38.7-80.0); PLATELET COUNT 381 x10e3/uL (140-360); RED BLOOD COUNT 4.01 x10e6/uL (3.6-5.1); RED CELL DISTRIBUTION WIDTH 18.2 % (11.7-14.4)
[2022-04-01 12:38] LABS: ALBUMIN 3.6 g/dL (3.5-5.0); ALBUMIN/GLOBULIN RATIO 1.2 (0.8-2.0); ANION GAP 14.7 mmol/L (8-16); CALCIUM 8.8 mg/dL (8.4-10.2); CREATININE, SERUM 0.73 mg/dL (0.57-1.11); POTASSIUM 4.7 mmol/L (3.5-5.1)
[~2022-04-04] MED LIST changes: +AMITRIPTYLINE H25 MG PO; -COVID-19 VACC, MRNA(MODERNA)/PF 100 MCG/0.5 ML VIAL IM ONE; +DOCULAX PO; +EYE PROMISE PO; +ONDANSETRON ODT4 MG PO; +POVIDONE IODINE 0.05% 0.05 % ML PO ONE; +PROPOFOL IV EMULSION 10 MG/ML 20 ML VIAL ONE; +VITAMIN D250 MCG PO
[2022-04-04 09:58] VITALS: BP 136/72
== END | disposition home or self-care (01) ==
LOC: OR 06:57
PROVIDERS: ATTEND Surgery
DX: C15.9 Malignant neoplasm of esophagus, unspecified (principal); K31.7 Polyp of stomach and duodenum; K29.00 Acute gastritis without bleeding; K29.50 Unspecified chronic gastritis without bleeding; K21.00 Gastro-esophageal reflux disease with esophagitis, without bleeding; Z90.49 Acquired absence of other specified parts of digestive tract; I10 Essential (primary) hypertension; H91.91 Unspecified hearing loss, right ear; F32.A Depression, unspecified; Z91.041 Radiographic dye allergy status; Z01.810 Encounter for preprocedural cardiovascular examination; Z01.812 Encounter for preprocedural laboratory examination; Z01.818 Encounter for other preprocedural examination; Z79.899 Other long term (current) drug therapy
CPT/HCPCS: 36415; 43239; 71046; 80053; 85025; 88305; 88342; 93005; J2704

== ENCOUNTER → 2024-04-11 | Day surgery (SDC) | payer MEDICARE ==
[2024-04-07 12:59] LABS: BASOPHILS # (AUTO) 0.1 (0.0-0.1); BASOPHILS % 0.6 % (0.0-1.0); EOSINOPHILS # (AUTO) 0.1 (0.0-0.4); EOSINOPHILS % 1.1 % (0.0-6.0); HEMATOCRIT 41.9 % (34.2-44.1); HEMOGLOBIN 13.2 g/dL (12.0-16.0); LYMPHOCYTES # (AUTO) 4.1 (1.0-3.2); LYMPHOCYTES % 40.1 % (18.0-39.1); MEAN CORPUSCULAR HEMOGLOBIN 31.9 pg (28-32); MEAN CORPUSCULAR HGB CONC 31.5 g/dL (31-35); MEAN CORPUSCULAR VOLUME 101.2 fL (81-99); MONOCYTES # (AUTO) 1.1 (0.2-0.8); MONOCYTES % 10.4 % (4.4-11.3); NEUTROPHILS # (AUTO) 4.9 (2.1-6.9); NEUTROPHILS % 47.4 % (38.7-80.0); PLATELET COUNT 358 x10e3/uL (140-360); RED BLOOD COUNT 4.14 x10e6/uL (3.6-5.1); RED CELL DISTRIBUTION WIDTH 15.9 % (11.7-14.4); WHITE BLOOD COUNT 10.29 x10e3/uL (4.8-10.8)
[2024-04-07 13:40] LABS: ALBUMIN 3.8 g/dL (3.5-5.0); ALBUMIN/GLOBULIN RATIO 1.4 (0.8-2.0); ANION GAP 13.4 mmol/L (8-16); BILIRUBIN,TOTAL 0.6 mg/dL (0.2-1.2); CALCIUM 9.2 mg/dL (8.4-10.2); CREATININE, SERUM 0.72 mg/dL (0.57-1.11); POTASSIUM 4.4 mmol/L (3.5-5.1); TOTAL PROTEIN 6.6 g/dL (6.5-8.1)
[2024-04-07 14:02] LABS: FREE THYROXINE INDEX 1.9983 (1.4-3.8); T3 UPTAKE 28.92 % (22.5-37.0); THYROID STIMULATING HORMONE 1.552 uIU/mL (0.350-4.940)
[2024-04-07 14:05] LABS: T4 (THYROXINE) 6.91 ug/dL (4.5-10.9)
[2024-04-07 14:08] LABS: FOLATE 4.6 ng/mL (7.0-15.4)
[~2024-04-11] MED LIST changes: +CALTRATE-600 W1 EACH PO; +DULCOLAX STOOL100 MG PO; +IRON PO; +LIDOCAINE HCL 2% LOCAL INJ 5 ML SDV VIAL INJ ONE; +METOCLOPRAMIDE HCL 10 MG/2ML VIAL ONE; +METOCLOPRAMIDE10 MG PO; +MULTI-VITAMIN1 EACH PO; +OMEPRAZOLE40 MG PO; -POVIDONE IODINE 0.05% 0.05 % ML PO ONE; +PROBIOTIC PO; +PROLIA60 MG/1 ML INJ; +VITAMIN B122500 MCG SL
[2024-04-11] MEDS: LACTATED RINGER'S 1,000 ML ONE (07:26)
[2024-04-11 09:33] VITALS: BP 128/84; PULSE 84; RESP 17; O2SAT 98
== END | disposition home or self-care (01) ==
LOC: OR 06:16
PROVIDERS: ATTEND Surgery
DX: Z09 Encounter for follow-up examination after completed treatment for conditions other than malignant neoplasm (principal); Z85.01 Personal history of malignant neoplasm of esophagus; K22.81 Esophageal polyp; K21.00 Gastro-esophageal reflux disease with esophagitis, without bleeding; Z90.3 Acquired absence of stomach [part of]; I10 Essential (primary) hypertension; E78.5 Hyperlipidemia, unspecified; E03.9 Hypothyroidism, unspecified; Z88.6 Allergy status to analgesic agent; Z91.041 Radiographic dye allergy status; Z01.810 Encounter for preprocedural cardiovascular examination; Z01.812 Encounter for preprocedural laboratory examination; Z01.818 Encounter for other preprocedural examination; Z79.899 Other long term (current) drug therapy
CPT/HCPCS: 36415; 43239; 71046; 80053; 82607; 82746; 83540; 84436; 84443; 84466; 84479; 85025; 88305; 88312; 88342; 93005; J2003; J2704; J2765; J7121